=== PATIENT | male | born 1955 | race African-American/Black ===

== ENCOUNTER 2018-03-30 00:23 | Inpatient (IN) | payer MEDICAID ==
[~2018-03-30] VITALS: Ht 177.8 cm; Wt 75.3 kg
[2018-03-30] VITALS (8 sets, daily range): BP systolic 100–136; BP diastolic 66–96
[2018-03-30] MEDS ORDERED: PANTOPRAZOLE SODIUM 40 MG/VIAL IV STA (01:32)
[2018-03-30] MEDS ORDERED: SODIUM CHLORIDE 0.9% 1,000 ML IV ONE (01:32)
[2018-03-30] MEDS ORDERED: ONDANSETRON HCL 4MG/2ML INJ IV STA (01:32)
[2018-03-30 02:41] LABS: BASOPHILS % 0.3 % (0.0-2.0); EOSINOPHILS % 0.4 % (0.0-5.0); HEMATOCRIT. 29.9 % (42.0-52.0); HEMOGLOBIN. 9.3 g/dL (14.0-18.0); LYMPHOCYTES % 14.9 % (20.0-50.0); MEAN CORPUSCULAR HEMOGLOBIN 22.9 pg (28.0-32.0); MEAN CORPUSCULAR VOLUME 74.1 fL (80.0-94.0); MONOCYTES % 7.6 % (2.0-8.0); NEUTROPHILS % 76.8 % (40.0-76.0); PLATELET 281 x1000/uL (130-400); RED BLOOD CELL COUNT 4.04 mill/uL (4.7-6.1); RED CELL DISTRIBUTION WIDTH 20.1 % (11.6-14.6)
[2018-03-30 02:47] LABS: CHLORIDE 107 mEq/L (98-107)
[2018-03-30 02:53] LABS: INR 1.1; PARTIAL THROMBOPLASTIN TIME 30.5 sec (23.4-31.0); PROTHROMBIN TIME 10.8 sec (9.1-11.1)
[2018-03-30] MEDS ORDERED: ACET-2708 MT (11:40)
[2018-03-30] MEDS ORDERED: FAMO20TA8 MT (11:40)
[2018-03-30] MEDS ORDERED: ALBU2.5V13 IH (11:40)
[2018-03-30] MEDS ORDERED: CLON0.1T PO (11:40)
[2018-03-30] MEDS ORDERED: ACET-2178 MT (11:40)
[2018-03-30] MEDS ORDERED: GABA-531 MT (11:40)
[2018-03-30] MEDS ORDERED: DOCU250C69 MT (11:40)
[2018-03-30] MEDS ORDERED: MOM MT (11:40)
[2018-03-30] MEDS ORDERED: RISP1TAB26 MT (11:40)
[2018-03-30] MEDS ORDERED: KEPP500 MT (11:40)
[2018-03-30] MEDS ORDERED: MIDO5TAB MT (11:40)
[2018-03-30] MEDS ORDERED: DIPHENHYDRAMINE 50MG/ML VIAL IV PRN (13:45)
[2018-03-30] MEDS ORDERED: DOCUSATE SODIUM 100MG CAPSULE PO PRN (13:45)
[2018-03-30] MEDS ORDERED: DEXTROSE 50% WATER 50ML SYRINGE IV PRN (13:45)
[2018-03-30] MEDS ORDERED: ACETAMINOPHEN 325MG TABLET PO PRN (13:45)
[2018-03-30] MEDS ORDERED: GUAIFENESIN 200MG/10ML SUGAR FREE UDC PO PRN (13:45)
[2018-03-30] MEDS ORDERED: HYDRALAZINE 20MG/ML VIAL IV PRN (13:45)
[2018-03-30] MEDS ORDERED: MAGNESIUM/ALUMINUM HYDROXIDE/SIMETHICONE 30ML UDC PO PRN (13:45)
[2018-03-30] MEDS ORDERED: ONDANSETRON HCL 4MG/2ML INJ IV PRN (13:45)
[2018-03-30] MEDS ORDERED: IPRATROPIUM/ALBUTEROL 0.5-3(2.5)MG/3ML NEB INH PRN (13:45)
[2018-03-30] MEDS ORDERED: CLONIDINE 0.1MG TABLET PO PRN (13:45)
[2018-03-30] MEDS: PANTOPRAZOLE SODIUM 40 MG/VIAL IV SCH ×2 (15:13→21:13)
[2018-03-30] MEDS: SODIUM CHLORIDE 0.45% 1,000 ML IV SCH (15:16)
[2018-03-30] MEDS: HYDROMORPHONE HCL/PF 2MG/ML CPJ IV PRN ×2 (15:16→21:42)
[2018-03-30 17:57] LABS: TOTAL IRON BINDING CAPACITY 369 ug/dL (250-450)
[2018-03-30 17:58] LABS: CREATINE KINASE 79 IU/L (39-308)
[2018-03-30 17:59] LABS: CREATINE KINASE MB FRACTION < 1.0 ng/mL (0.5-3.6)
[2018-03-30] MEDS: INSULIN LISPRO 100 UNITS/ML SUBCUT SCH ×2 (18:00→21:00)
[2018-03-30] MEDS: BLOOD SUGAR DIAGNOSTIC STRIP TEST SCH ×2 (18:18→21:12)
[2018-03-30] MEDS: METOCLOPRAMIDE HCL 10MG/2ML VIAL IV SCH ×2 (18:19→23:49)
[2018-03-30] MEDS ORDERED: PANTOPRAZOLE SODIUM 40 MG/VIAL IV SCH (21:00)
[2018-03-30] MEDS: SODIUM CHLORIDE 0.9% INJ 3ML FLUSH IVF SCH (21:13)
[2018-03-30 23:36] LABS: HEMATOCRIT 24.3 % (42.0-52.0); HEMOGLOBIN 7.6 g/dL (14.0-18.0)
[2018-03-30 23:40] LABS: CREATINE KINASE 102 IU/L (39-308)
[2018-03-30 23:41] LABS: CREATINE KINASE MB FRACTION 1.1 ng/mL (0.5-3.6)
[2018-03-30] MEDS: LORAZEPAM 2MG/ML CPJ IV PRN (23:53)
[2018-03-30 23:54] LABS: FOLIC ACID (FOLATE) SERUM 17.6 ng/mL (>5.38)
[2018-03-31] VITALS (15 sets, daily range): BP systolic 99–135; BP diastolic 44–78
[2018-03-31] MEDS: SODIUM CHLORIDE 0.9% INJ 3ML FLUSH IVF SCH ×3 (06:00→21:23)
[2018-03-31] MEDS: METOCLOPRAMIDE HCL 10MG/2ML VIAL IV SCH ×4 (06:06→23:31)
[2018-03-31 06:59] LABS: BASOPHILS % 0.4 % (0.0-2.0); EOSINOPHILS % 1.5 % (0.0-5.0); HEMATOCRIT. 25.1 % (42.0-52.0); HEMOGLOBIN. 7.8 g/dL (14.0-18.0); MEAN CORPUSCULAR HEMOGLOBIN 23.1 pg (28.0-32.0); MEAN CORPUSCULAR VOLUME 74.3 fL (80.0-94.0); MEAN PLATELET VOLUME 8.9 fl (7.4-10.4); MONOCYTES % 12.4 % (2.0-8.0); NEUTROPHILS % 65.7 % (40.0-76.0); PLATELET 227 x1000/uL (130-400); RED BLOOD CELL COUNT 3.38 mill/uL (4.7-6.1); RED CELL DISTRIBUTION WIDTH 20.1 % (11.6-14.6)
[2018-03-31 07:11] LABS: CHLORIDE 111 mEq/L (98-107)
[2018-03-31 07:31] LABS: LDL CHOLESTEROL 61 mg/dL (5-100)
[2018-03-31 07:34] LABS: HDL CHOLESTEROL 37 mg/dL (40-59)
[2018-03-31] MEDS: BLOOD SUGAR DIAGNOSTIC STRIP TEST SCH ×4 (07:58→21:23)
[2018-03-31] MEDS: INSULIN LISPRO 100 UNITS/ML SUBCUT SCH ×4 (07:59→21:00)
[2018-03-31] MEDS: PANTOPRAZOLE SODIUM 40 MG/VIAL IV SCH ×2 (09:00→20:28)
[2018-03-31] MEDS: SODIUM CHLORIDE 0.45% 1,000 ML IV SCH ×2 (12:00→23:34)
[2018-03-31] MEDS: HYDROMORPHONE HCL/PF 2MG/ML CPJ IV PRN ×3 (14:55→20:29)
[2018-03-31 18:04] LABS: HEMATOCRIT 25.2 % (42.0-52.0); HEMOGLOBIN 7.6 g/dL (14.0-18.0)
[2018-03-31] MEDS: LORAZEPAM 2MG/ML CPJ IV PRN (23:31)
[2018-03-31] MEDS: HYDROCODONE/ACETAMINOPHEN 10/325MG TABLET PO PRN (23:32)
[2018-04-01] VITALS (23 sets, daily range): BP systolic 90–136; BP diastolic 56–84
[2018-04-01] MEDS: METOCLOPRAMIDE HCL 10MG/2ML VIAL IV SCH ×3 (05:38→18:41)
[2018-04-01] MEDS: SODIUM CHLORIDE 0.9% INJ 3ML FLUSH IVF SCH ×3 (05:38→22:46)
[2018-04-01 06:29] LABS: INR 1.1; PARTIAL THROMBOPLASTIN TIME 25.9 sec (23.4-31.0); PROTHROMBIN TIME 11.2 sec (9.1-11.1)
[2018-04-01 06:37] LABS: BASOPHILS % 0.3 % (0.0-2.0); LYMPHOCYTES % 12.9 % (20.0-50.0); MEAN CORPUSCULAR VOLUME 75.1 fL (80.0-94.0); MEAN PLATELET VOLUME 8.5 fl (7.4-10.4); MONOCYTES % 11.5 % (2.0-8.0); NEUTROPHILS % 73.3 % (40.0-76.0); PLATELET 204 x1000/uL (130-400); RED BLOOD CELL COUNT 2.96 mill/uL (4.7-6.1); RED CELL DISTRIBUTION WIDTH 20.9 % (11.6-14.6)
[2018-04-01 07:43] LABS: CHLORIDE 107 mEq/L (98-107)
[2018-04-01] MEDS: BLOOD SUGAR DIAGNOSTIC STRIP TEST SCH ×4 (07:53→21:00)
[2018-04-01] MEDS: INSULIN LISPRO 100 UNITS/ML SUBCUT SCH ×4 (07:53→21:00)
[2018-04-01 08:23] LABS: HEMATOCRIT. 22.2 % (42.0-52.0); HEMOGLOBIN. 6.8 g/dL (14.0-18.0)
[2018-04-01] MEDS: DEXT 5%/0.45% NACL 1000ML 1,000 ML IV SCH (08:52)
[2018-04-01] MEDS: PANTOPRAZOLE SODIUM 40 MG/VIAL IV SCH ×2 (08:52→22:45)
[2018-04-01 14:31] LABS: HEMATOCRIT 27.5 % (42.0-52.0); HEMOGLOBIN 8.8 g/dL (14.0-18.0)
[2018-04-01] MEDS ORDERED: FENTANYL CITRATE/PF 50MCG/ML 2ML VIAL ONE ×2 (17:16→17:18)
[2018-04-01] MEDS ORDERED: MIDAZOLAM HCL 5 MG/5 ML VIAL IV PRN (17:16)
[2018-04-01] MEDS ORDERED: MIDAZOLAM HCL 5 MG/5 ML VIAL ONE (17:16)
[2018-04-01] MEDS: HYDROMORPHONE HCL/PF 2MG/ML CPJ IV PRN (18:42)
[2018-04-02] VITALS (12 sets, daily range): BP systolic 116–141; BP diastolic 54–91
[2018-04-02] MEDS: METOCLOPRAMIDE HCL 10MG/2ML VIAL IV SCH ×4 (01:35→23:49)
[2018-04-02] MEDS: DEXT 5%/0.45% NACL 1000ML 1,000 ML IV SCH ×2 (01:35→17:33)
[2018-04-02] MEDS: INSULIN LISPRO 100 UNITS/ML SUBCUT SCH ×4 (07:49→21:00)
[2018-04-02] MEDS: BLOOD SUGAR DIAGNOSTIC STRIP TEST SCH ×4 (07:49→21:51)
[2018-04-02] MEDS: PANTOPRAZOLE SODIUM 40 MG/VIAL IV SCH ×2 (08:10→21:51)
[2018-04-02] MEDS: HYDROMORPHONE HCL/PF 2MG/ML CPJ IV PRN ×2 (08:11→16:40)
[2018-04-02 08:28] LABS: BASOPHILS % 0.2 % (0.0-2.0); EOSINOPHILS % 1.7 % (0.0-5.0); HEMATOCRIT. 31.3 % (42.0-52.0); LYMPHOCYTES % 14.5 % (20.0-50.0); MEAN CORPUSCULAR HEMOGLOBIN 24.9 pg (28.0-32.0); MEAN CORPUSCULAR VOLUME 77.7 fL (80.0-94.0); MEAN PLATELET VOLUME 8.8 fl (7.4-10.4); MONOCYTES % 14.7 % (2.0-8.0); NEUTROPHILS % 68.9 % (40.0-76.0); PLATELET 194 x1000/uL (130-400); RED BLOOD CELL COUNT 4.03 mill/uL (4.7-6.1)
[2018-04-02 08:55] LABS: CHLORIDE 107 mEq/L (98-107)
[2018-04-02] MEDS ORDERED: POTASSIUM CHLORIDE 20MEQ TABLET SR PO SCH (12:15)
[2018-04-02] MEDS: SUCRALFATE 1 G/10 ML UDC PO SCH ×3 (12:46→21:51)
[2018-04-02] MEDS: SODIUM CHLORIDE 0.9% INJ 3ML FLUSH IVF SCH ×2 (13:30→21:52)
[2018-04-02] MEDS: HYDROCODONE/ACETAMINOPHEN 10/325MG TABLET PO PRN (23:54)
[2018-04-03] VITALS (7 sets, daily range): BP systolic 106–135; BP diastolic 59–80
[2018-04-03] MEDS: METOCLOPRAMIDE HCL 10MG/2ML VIAL IV SCH ×2 (05:07→12:07)
[2018-04-03] MEDS: SODIUM CHLORIDE 0.9% INJ 3ML FLUSH IVF SCH ×2 (05:07→14:59)
[2018-04-03] MEDS: BLOOD SUGAR DIAGNOSTIC STRIP TEST SCH ×2 (07:30→12:30)
[2018-04-03] MEDS: INSULIN LISPRO 100 UNITS/ML SUBCUT SCH ×2 (08:00→13:00)
[2018-04-03] MEDS: SUCRALFATE 1 G/10 ML UDC PO SCH ×2 (08:44→12:07)
[2018-04-03] MEDS: PANTOPRAZOLE SODIUM 40 MG/VIAL IV SCH (09:40)
[2018-04-03] MEDS: DEXT 5%/0.45% NACL 1000ML 1,000 ML IV SCH (11:56)
== END 2018-04-03 18:17 | DRG 241 ==
LOC: ER 00:23 → 5EST 05:28 → EDBEDREQ 05:36 → EDBEDREQTM 05:36 → ENRESERV 06:58
PROVIDERS: ADMIT Internal Medicine; ATTEND Internal Medicine
PROC: 0DJ08ZZ Inspection of Upper Intestinal Tract, Via Natural or Artificial Opening Endoscopic (ICD-10-PCS; 2018-03-30)
PROC: B54BZZA Ultrasonography of Right Lower Extremity Veins, Guidance (ICD-10-PCS; 2018-03-31)
PROC: 06HY33Z Insertion of Infusion Device into Lower Vein, Percutaneous Approach (ICD-10-PCS; 2018-03-31)
PROC: 30233N1 Transfusion of Nonautologous Red Blood Cells into Peripheral Vein, Percutaneous Approach (ICD-10-PCS; principal; 2018-04-01)
DX: K29.71 Gastritis, unspecified, with bleeding (principal); J96.00 Acute respiratory failure, unspecified whether with hypoxia or hypercapnia; Z93.0 Tracheostomy status; E11.51 Type 2 diabetes mellitus with diabetic peripheral angiopathy without gangrene; I31.3 Pericardial effusion (noninflammatory); K56.7 Ileus, unspecified; F20.9 Schizophrenia, unspecified; K83.8 Other specified diseases of biliary tract; D50.9 Iron deficiency anemia, unspecified; J44.9 Chronic obstructive pulmonary disease, unspecified; I10 Essential (primary) hypertension; K44.9 Diaphragmatic hernia without obstruction or gangrene; N28.1 Cyst of kidney, acquired; G40.909 Epilepsy, unspecified, not intractable, without status epilepticus; K21.0 Gastro-esophageal reflux disease with esophagitis; K22.8 Other specified diseases of esophagus; Z79.4 Long term (current) use of insulin; Z79.899 Other long term (current) drug therapy; Z87.11 Personal history of peptic ulcer disease; Z86.718 Personal history of other venous thrombosis and embolism; K20.8 Other esophagitis
CPT/HCPCS: 36415; 36569; 71045; 74018; 74176; 76700; 76937; 80048; 80061; 82550; 82553; 82607; 82728; 82746; 82941; 82962; 83540; 83550; 83605; 83735; 84439; 84443; 84484; 85014; 85018; 86850; 86900; 86920; 93005; 93306; 96374; 96375; 99291; A6261; C1725; C1769; C1887; C9113; J1170; J1200; J2060; J2250; J2405; J2765; J3010; J7030; J7040; L8514; P9016

== ENCOUNTER 2019-08-04 17:13 | Inpatient (IN) | payer MEDICAID ==
[~2019-08-04] VITALS: Ht 165.1 cm; Wt 63.0 kg
[~2019-08-04 17:13] MED LIST: ACET-2708 MT; ALBU2.5V13 IH; CLON0.1T PO; DOCU250C69 MT; FAMO20TA8 MT; GABA-531 MT; KEPP500 MT; MIDO5TAB4 MT; MOM MT; RISP1TAB26 MT; TOPUD MT
[2019-08-04] MEDS ORDERED: ACETAMINOPHEN 650MG SUPP PR STA (18:18)
[2019-08-04] MEDS ORDERED: SODIUM CHLORIDE 0.9% 1,000 ML IV ONE (18:18)
[2019-08-04] MEDS ORDERED: ONDANSETRON HCL 4MG/2ML INJ IV ONE (18:30)
[2019-08-04] MEDS ORDERED: VANCOMYCIN 1 G PREMIX 200 ML IV ONE (18:30)
[2019-08-04] MEDS ORDERED: PIPERACILLIN/TAZ 3.375G PREMIX 50 ML IV ONE (18:30)
[2019-08-04 18:49] LABS: BASOPHILS % 0.2 % (0.0-2.0); EOSINOPHILS % 0.1 % (0.0-5.0); HEMATOCRIT. 39.4 % (42.0-52.0); HEMOGLOBIN. 13.3 g/dL (14.0-18.0); LYMPHOCYTES % 8.3 % (20.0-50.0); MEAN CORPUSCULAR HEMOGLOBIN 29.6 pg (28.0-32.0); MEAN CORPUSCULAR VOLUME 87.8 fL (80.0-94.0); MEAN PLATELET VOLUME 8.8 fl (7.4-10.4); MONOCYTES % 7.6 % (2.0-8.0); NEUTROPHILS % 83.8 % (40.0-76.0); PLATELET 211 x1000/uL (130-400); RED BLOOD CELL COUNT 4.49 mill/uL (4.7-6.1); RED CELL DISTRIBUTION WIDTH 19.2 % (11.6-14.6)
[2019-08-04 18:56] LABS: CHLORIDE 107 mEq/L (98-107)
[2019-08-04 19:00] LABS: PARTIAL THROMBOPLASTIN TIME 28.2 sec (23.4-31.0); PROTHROMBIN TIME 11.1 sec (9.6-11.0)
[2019-08-04] MEDS ORDERED: PANTOPRAZOLE SODIUM 40 MG/VIAL IV ONE (21:15)
[2019-08-05] VITALS (7 sets, daily range): BP systolic 84–109; BP diastolic 41–59
[2019-08-05 01:29] LABS: CLARITY URINE CLOUDY (CLEAR); COLOR URINE YELLOW (YELLOW); KETONES URINE 1+ (NEGATIVE); LEUKOCYTE ESTERASE URINE TRACE (NEGATIVE); NITRITE URINE POSITIVE (NEGATIVE); OCCULT BLOOD URINE TRACE (NEGATIVE); PH URINE 5.5 (4.5-8.0); PROTEIN URINE TRACE (NEGATIVE)
[2019-08-05] MEDS ORDERED: TRAZ-251 PO (02:20)
[2019-08-05] MEDS ORDERED: IPRATROPIUM/ALBUTEROL 0.5-3(2.5)MG/3ML NEB HHN PRN (02:30)
[2019-08-05] MEDS: MIDODRINE HCL 5MG TABLET PO SCH ×3 (05:40→21:43)
[2019-08-05] MEDS: CEFTRIAXONE 1 G PREMIX 50 ML IV SCH (08:00)
[2019-08-05] MEDS: SODIUM CHLORIDE 0.45% 1,000 ML IV SCH (08:30)
[2019-08-05] MEDS ORDERED: ENOXAPARIN 40MG/0.4ML SYR SUBCUT SCH (09:00)
[2019-08-05] MEDS: AZITHROMYCIN 500 MG in DEXT 5% WATER 250 ML IV SCH (09:00)
[2019-08-05] MEDS: PANTOPRAZOLE SODIUM 40 MG/VIAL IV SCH ×3 (09:00→21:42)
[2019-08-05] MEDS: LEVETIRACETAM 500MG TABLET PO SCH ×2 (10:07→18:16)
[2019-08-05] MEDS: RISPERIDONE 1MG TABLET PO SCH ×2 (10:08→18:16)
[2019-08-05 13:04] LABS: HEMATOCRIT 29.5 % (42.0-52.0); HEMOGLOBIN 9.9 g/dL (14.0-18.0)
[2019-08-05] MEDS: SUCRALFATE 1 G/10 ML UDC PO SCH ×2 (13:30→18:16)
[2019-08-05 17:51] LABS: HEMATOCRIT 28.5 % (42.0-52.0); HEMOGLOBIN 9.6 g/dL (14.0-18.0)
[2019-08-05] MEDS: TRAZODONE HCL 50MG TABLET PO SCH (21:44)
[2019-08-06 00:34] LABS: HEMATOCRIT 26.1 % (42.0-52.0); HEMOGLOBIN 8.8 g/dL (14.0-18.0)
[2019-08-06 01:11] VITALS: BP 86/43
[2019-08-06 04:00] VITALS: BP 90/46
[2019-08-06] MEDS: SODIUM CHLORIDE 0.45% 1,000 ML IV SCH (04:15)
[2019-08-06] MEDS: SUCRALFATE 1 G/10 ML UDC PO SCH ×4 (04:21→17:12)
[2019-08-06] MEDS: MIDODRINE HCL 5MG TABLET PO SCH ×3 (06:20→21:37)
[2019-08-06 07:21] LABS: BASOPHILS % 0.5 % (0.0-2.0); EOSINOPHILS % 1.8 % (0.0-5.0); HEMATOCRIT. 25.8 % (42.0-52.0); HEMOGLOBIN. 8.9 g/dL (14.0-18.0); LYMPHOCYTES % 12.5 % (20.0-50.0); MEAN CORPUSCULAR HEMOGLOBIN 30.1 pg (28.0-32.0); MEAN CORPUSCULAR VOLUME 87.3 fL (80.0-94.0); MEAN PLATELET VOLUME 8.5 fl (7.4-10.4); MONOCYTES % 12.1 % (2.0-8.0); NEUTROPHILS % 73.1 % (40.0-76.0); PLATELET 135 x1000/uL (130-400); RED BLOOD CELL COUNT 2.96 mill/uL (4.7-6.1); RED CELL DISTRIBUTION WIDTH 18.9 % (11.6-14.6)
[2019-08-06 07:50] LABS: CHLORIDE 109 mEq/L (98-107)
[2019-08-06 08:00] VITALS: BP 93/51
[2019-08-06] MEDS: CEFTRIAXONE 1 G PREMIX 50 ML IV SCH (09:22)
[2019-08-06] MEDS: LEVETIRACETAM 500MG TABLET PO SCH ×2 (09:22→17:11)
[2019-08-06] MEDS: PANTOPRAZOLE SODIUM 40 MG/VIAL IV SCH ×2 (09:22→21:37)
[2019-08-06] MEDS: RISPERIDONE 1MG TABLET PO SCH ×2 (09:22→17:11)
[2019-08-06] MEDS: ACETAMINOPHEN 325MG TABLET PO PRN (11:39)
[2019-08-06] MEDS: AZITHROMYCIN 500 MG in DEXT 5% WATER 250 ML IV SCH (11:42)
[2019-08-06 12:00] VITALS: BP 96/61
[2019-08-06 16:00] VITALS: BP 96/48
[2019-08-06 20:00] VITALS: BP 97/52
[2019-08-06] MEDS: TRAZODONE HCL 50MG TABLET PO SCH (21:37)
[2019-08-07] VITALS: BP 88/53
[2019-08-07] MEDS: SODIUM CHLORIDE 0.45% 1,000 ML IV SCH ×2 (00:30→21:02)
[2019-08-07] MEDS: SUCRALFATE 1 G/10 ML UDC PO SCH ×5 (00:58→23:07)
[2019-08-07] MEDS: ONDANSETRON HCL 4MG/2ML INJ IV PRN ×4 (01:20→23:57)
[2019-08-07 04:00] VITALS: BP 98/58
[2019-08-07] MEDS: MIDODRINE HCL 5MG TABLET PO SCH ×3 (05:41→21:03)
[2019-08-07 07:31] LABS: BASOPHILS % 0.6 % (0.0-2.0); EOSINOPHILS % 1.7 % (0.0-5.0); HEMATOCRIT. 27.5 % (42.0-52.0); HEMOGLOBIN. 9.4 g/dL (14.0-18.0); LYMPHOCYTES % 13.1 % (20.0-50.0); MEAN CORPUSCULAR HEMOGLOBIN 29.6 pg (28.0-32.0); MEAN PLATELET VOLUME 9.1 fl (7.4-10.4); NEUTROPHILS % 73.6 % (40.0-76.0); PLATELET 152 x1000/uL (130-400); RED BLOOD CELL COUNT 3.16 mill/uL (4.7-6.1); RED CELL DISTRIBUTION WIDTH 18.6 % (11.6-14.6)
[2019-08-07 07:36] LABS: CHLORIDE 111 mEq/L (98-107)
[2019-08-07 08:00] VITALS: BP 99/58
[2019-08-07] MEDS: LEVETIRACETAM 500MG TABLET PO SCH ×2 (08:20→17:31)
[2019-08-07] MEDS: RISPERIDONE 1MG TABLET PO SCH ×2 (08:20→17:31)
[2019-08-07] MEDS: PANTOPRAZOLE SODIUM 40 MG/VIAL IV SCH ×2 (08:20→21:03)
[2019-08-07] MEDS: CEFTRIAXONE 1 G PREMIX 50 ML IV SCH (08:20)
[2019-08-07] MEDS: ACETAMINOPHEN 325MG TABLET PO PRN (08:21)
[2019-08-07 12:00] VITALS: BP 97/62
[2019-08-07 16:00] VITALS: BP 99/58
[2019-08-07 20:00] VITALS: BP 93/55
[2019-08-07] MEDS: TRAZODONE HCL 50MG TABLET PO SCH (21:03)
[2019-08-08] VITALS: BP 79/48
[2019-08-08 04:00] VITALS: BP 93/61
[2019-08-08] MEDS: SUCRALFATE 1 G/10 ML UDC PO SCH ×3 (06:00→17:22)
[2019-08-08] MEDS: MIDODRINE HCL 5MG TABLET PO SCH ×3 (06:00→17:22)
[2019-08-08 06:52] LABS: BASOPHILS % 0.6 % (0.0-2.0); EOSINOPHILS % 4.7 % (0.0-5.0); HEMATOCRIT. 25.5 % (42.0-52.0); HEMOGLOBIN. 8.7 g/dL (14.0-18.0); LYMPHOCYTES % 20.5 % (20.0-50.0); MEAN CORPUSCULAR HEMOGLOBIN 29.3 pg (28.0-32.0); MEAN CORPUSCULAR VOLUME 86.2 fL (80.0-94.0); MEAN PLATELET VOLUME 8.5 fl (7.4-10.4); MONOCYTES % 13.5 % (2.0-8.0); NEUTROPHILS % 60.7 % (40.0-76.0); PLATELET 153 x1000/uL (130-400); RED BLOOD CELL COUNT 2.96 mill/uL (4.7-6.1); RED CELL DISTRIBUTION WIDTH 18.4 % (11.6-14.6)
[2019-08-08 07:00] LABS: CHLORIDE 109 mEq/L (98-107)
[2019-08-08] MEDS: CEFTRIAXONE 1 G PREMIX 50 ML IV SCH (08:35)
[2019-08-08] MEDS: PANTOPRAZOLE SODIUM 40 MG/VIAL IV SCH ×2 (08:35→22:08)
[2019-08-08] MEDS: LEVETIRACETAM 500MG TABLET PO SCH ×2 (08:35→17:22)
[2019-08-08] MEDS: RISPERIDONE 1MG TABLET PO SCH ×3 (08:35→17:00)
[2019-08-08 09:30] VITALS: BP 74/42
[2019-08-08] MEDS ORDERED: SODIUM CHLORIDE 0.9% 1,000 ML IV SCH ×2 (09:38→09:45)
[2019-08-08 12:00] VITALS: BP 90/48
[2019-08-08 16:00] VITALS: BP 96/46
[2019-08-08] MEDS: SODIUM CHLORIDE 0.45% 1,000 ML IV SCH (16:28)
[2019-08-08 20:00] VITALS: BP 104/58
[2019-08-08] MEDS ORDERED: IOHEXOL-300 100 ML BOTTLE ONE (20:56)
[2019-08-08] MEDS: TRAZODONE HCL 50MG TABLET PO SCH (22:08)
[2019-08-09] VITALS: BP 102/50
[2019-08-09] MEDS: SUCRALFATE 1 G/10 ML UDC PO SCH ×3 (00:38→14:27)
[2019-08-09] MEDS: ACETAMINOPHEN 325MG TABLET PO PRN (00:38)
[2019-08-09] MEDS: SODIUM CHLORIDE 0.45% 1,000 ML IV SCH ×2 (02:27→12:28)
[2019-08-09 04:00] VITALS: BP 100/52
[2019-08-09 08:00] VITALS: BP 135/79
[2019-08-09 08:00] LABS: CHLORIDE 110 mEq/L (98-107)
[2019-08-09] MEDS: PANTOPRAZOLE SODIUM 40 MG/VIAL IV SCH (09:23)
[2019-08-09] MEDS: CEFTRIAXONE 1 G PREMIX 50 ML IV SCH (09:24)
[2019-08-09] MEDS: MIDODRINE HCL 5MG TABLET PO SCH ×2 (09:38→14:27)
[2019-08-09] MEDS: RISPERIDONE 1MG TABLET PO SCH (09:38)
[2019-08-09] MEDS: LEVETIRACETAM 500MG TABLET PO SCH (09:53)
[2019-08-09 10:36] LABS: BASOPHILS % 1.1 % (0.0-2.0); EOSINOPHILS % 4.5 % (0.0-5.0); HEMATOCRIT. 26.1 % (42.0-52.0); LYMPHOCYTES % 23.8 % (20.0-50.0); MEAN CORPUSCULAR HEMOGLOBIN 29.9 pg (28.0-32.0); MEAN CORPUSCULAR VOLUME 87.1 fL (80.0-94.0); MEAN PLATELET VOLUME 8.5 fl (7.4-10.4); MONOCYTES % 11.9 % (2.0-8.0); NEUTROPHILS % 58.7 % (40.0-76.0); PLATELET 163 x1000/uL (130-400); RED CELL DISTRIBUTION WIDTH 18.4 % (11.6-14.6)
[2019-08-09 12:00] VITALS: BP 110/60
[2019-08-09 15:22] VITALS: BP 110/60
== END 2019-08-09 17:00 | DRG 720 ==
LOC: ER 17:13 → EDBEDREQ 20:43 → EDBEDREQTM 20:43 → MICUSO 22:59 → 7WST 08-05 01:30 → 8WST 08-06 01:16
PROVIDERS: ADMIT Internal Medicine; ATTEND Emergency Medicine
DX: A41.9 Sepsis, unspecified organism (principal); J96.00 Acute respiratory failure, unspecified whether with hypoxia or hypercapnia; R65.21 Severe sepsis with septic shock; E87.2 Acidosis; E11.8 Type 2 diabetes mellitus with unspecified complications; I95.9 Hypotension, unspecified; K92.2 Gastrointestinal hemorrhage, unspecified; E11.9 Type 2 diabetes mellitus without complications; D64.9 Anemia, unspecified; N39.0 Urinary tract infection, site not specified; F20.9 Schizophrenia, unspecified; K21.9 Gastro-esophageal reflux disease without esophagitis; K44.9 Diaphragmatic hernia without obstruction or gangrene; Z20.828 Contact with and (suspected) exposure to other viral communicable diseases; I10 Essential (primary) hypertension; J44.9 Chronic obstructive pulmonary disease, unspecified; G40.909 Epilepsy, unspecified, not intractable, without status epilepticus; K21.0 Gastro-esophageal reflux disease with esophagitis; Z86.718 Personal history of other venous thrombosis and embolism; Z87.11 Personal history of peptic ulcer disease; Z95.828 Presence of other vascular implants and grafts; Z79.1 Long term (current) use of non-steroidal anti-inflammatories (NSAID); Z79.899 Other long term (current) drug therapy
CPT/HCPCS: 36415; 71045; 74177; 80048; 80053; 81003; 82962; 83605; 83880; 84145; 84484; 85014; 85018; 85025; 93005; 93306; 97162; 97530; 99291; C9113; J0456; J0696; J2405; J2543; J3370; J7030; J7060; Q9967; U0003-CS

== ENCOUNTER 2019-12-24 18:02 | Inpatient (IN) | payer MEDICAID ==
[~2019-12-24] VITALS: Ht 172.7 cm; Wt 62.6 kg
[~2019-12-24 18:02] MED LIST changes: +TRAZ-251 PO
[2019-12-24] MEDS ORDERED: PIPERACILLIN/TAZ 3.375G PREMIX 50 ML IV ONE (18:30)
[2019-12-24] MEDS ORDERED: VANCOMYCIN 1 G PREMIX 200 ML IV ONE (18:30)
[2019-12-24] MEDS ORDERED: SODIUM CHLORIDE 0.9% 1000ML BAG (SEPSIS BOLUS) IV ONE (18:30)
[2019-12-24 18:59] LABS: HEMATOCRIT. 28.1 % (42.0-52.0); HEMOGLOBIN. 9.3 g/dL (14.0-18.0); MEAN CORPUSCULAR HEMOGLOBIN 26.6 pg (28.0-32.0); MEAN CORPUSCULAR VOLUME 80.7 fL (80.0-94.0); MEAN PLATELET VOLUME 9.3 fl (7.4-10.4); PLATELET 179 x1000/uL (130-400); RED BLOOD CELL COUNT 3.49 mill/uL (4.7-6.1); RED CELL DISTRIBUTION WIDTH 21.3 % (11.6-14.6)
[2019-12-24 19:06] LABS: CHLORIDE 114 mEq/L (98-107)
[2019-12-24 19:15] LABS: INR 1.3; PROTHROMBIN TIME 13.4 sec (9.6-11.0)
[2019-12-24 19:34] LABS: CLARITY URINE CLOUDY (CLEAR); COLOR URINE DARK YELLOW (YELLOW); KETONES URINE NEGATIVE (NEGATIVE); LEUKOCYTE ESTERASE URINE 1+ (NEGATIVE); NITRITE URINE POSITIVE (NEGATIVE); OCCULT BLOOD URINE 1+ (NEGATIVE); PROTEIN URINE 2+ (NEGATIVE); SPECIFIC GRAVITY URINE 1.031 (1.005-1.030)
[2019-12-24] MEDS ORDERED: ACETAMINOPHEN 325MG TABLET PO ONE (19:45)
[2019-12-24 20:17] LABS: PLATELET ESTIMATE NORMAL
[2019-12-24] MEDS ORDERED: NOREPINEPHRINE 8MG/250ML PMX 250 ML IV ONE (23:45)
[2019-12-25] VITALS (71 sets, daily range): BP systolic 81–142; BP diastolic 46–103
[2019-12-25] MEDS ORDERED: DOCU50LI25 MT (02:11)
[2019-12-25] MEDS ORDERED: KEPPSOL MT (02:17)
[2019-12-25] MEDS ORDERED: RISP4 MT (02:17)
[2019-12-25] MEDS ORDERED: MAGN400C MT (02:17)
[2019-12-25] MEDS ORDERED: ONDA4TAB5 MT (02:17)
[2019-12-25] MEDS ORDERED: PROT40 MT (02:17)
[2019-12-25] MEDS ORDERED: DIPH25CA83 MT (02:17)
[2019-12-25] MEDS ORDERED: CALC600T12 MT (02:17)
[2019-12-25] MEDS ORDERED: DEXTROSE 50% WATER 50ML SYRINGE IV PRN (03:00)
[2019-12-25] MEDS ORDERED: POTASSIUM CHLORIDE 20MEQ/PACKET PO SCH (03:00)
[2019-12-25] MEDS ORDERED: NOREPINEPHRINE 8MG/250ML PMX 250 ML IV PRN (03:00)
[2019-12-25] MEDS ORDERED: NOREPINEPHRINE 8 MG in DEXTROSE 5% WATER 250 ML IV PRN (03:15)
[2019-12-25] MEDS: PIPERACILLIN/TAZOBACTAM 3.375 G in DEXT 5% WATER 100 ML IV SCH ×4 (05:40→23:58)
[2019-12-25] MEDS: VANCOMYCIN 1 G PREMIX 200 ML IV SCH ×2 (05:41→19:45)
[2019-12-25] MEDS ORDERED: PIPERACILLIN/TAZOBACTAM 3.375 G/VIAL IV SCH (06:00)
[2019-12-25] MEDS ORDERED: BLOOD SUGAR DIAGNOSTIC STRIP TEST SCH (06:30)
[2019-12-25] MEDS ORDERED: INSULIN LISPRO 100 UNITS/ML SUBCUT SCH (07:00)
[2019-12-25] MEDS: ENOXAPARIN 40MG/0.4ML SYR SUBCUT SCH (09:00)
[2019-12-25] MEDS ORDERED: IPRATROPIUM/ALBUTEROL 0.5-3(2.5)MG/3ML NEB HHN PRN (10:30)
[2019-12-25] MEDS: DOCUSATE SODIUM 250MG CAPSULE PO SCH (10:30)
[2019-12-25] MEDS: SODIUM CHLORIDE 0.45% 1,000 ML IV SCH ×2 (11:10→23:57)
[2019-12-25] MEDS: LEVETIRACETAM 500MG TABLET PO SCH ×2 (11:26→21:10)
[2019-12-25] MEDS: MIDODRINE HCL 5MG TABLET PO SCH ×4 (11:26→17:02)
[2019-12-25] MEDS: OMEPRAZOLE 20MG CAPSULE EXTENDED RELEASE PO SCH (11:27)
[2019-12-25] MEDS: FERROUS SULFATE 325MG TABLET PO SCH ×3 (11:29→17:01)
[2019-12-25 12:26] LABS: HEMATOCRIT. 24.8 % (42.0-52.0); HEMOGLOBIN. 8.1 g/dL (14.0-18.0); MEAN CORPUSCULAR HEMOGLOBIN 26.5 pg (28.0-32.0); MEAN CORPUSCULAR VOLUME 80.6 fL (80.0-94.0); MEAN PLATELET VOLUME 8.6 fl (7.4-10.4); PLATELET 156 x1000/uL (130-400); RED BLOOD CELL COUNT 3.08 mill/uL (4.7-6.1); RED CELL DISTRIBUTION WIDTH 21.2 % (11.6-14.6)
[2019-12-25 12:48] LABS: CHLORIDE 115 mEq/L (98-107)
[2019-12-25 13:14] LABS: PLATELET ESTIMATE NORMAL
[2019-12-25] MEDS: ONDANSETRON HCL 4MG/2ML INJ IV PRN (17:02)
[2019-12-25] MEDS: ACETAMINOPHEN 325MG TABLET PO PRN (21:10)
[2019-12-25] MEDS: MORPHINE SULFATE 2 MG/ML CPJ (NOT FOR IM USE) IV PRN (22:57)
[2019-12-26] VITALS (95 sets, daily range): BP systolic 92–126; BP diastolic 50–78
[2019-12-26] MEDS: VANCOMYCIN 1 G PREMIX 200 ML IV SCH (05:33)
[2019-12-26] MEDS: MORPHINE SULFATE 2 MG/ML CPJ (NOT FOR IM USE) IV PRN (05:33)
[2019-12-26] MEDS: PIPERACILLIN/TAZOBACTAM 3.375 G in DEXT 5% WATER 100 ML IV SCH ×2 (05:33→13:53)
[2019-12-26 05:53] LABS: HEMATOCRIT. 21.9 % (42.0-52.0); HEMOGLOBIN. 7.2 g/dL (14.0-18.0); MEAN CORPUSCULAR HEMOGLOBIN 26.2 pg (28.0-32.0); MEAN CORPUSCULAR VOLUME 79.3 fL (80.0-94.0); MEAN PLATELET VOLUME 9.8 fl (7.4-10.4); PLATELET 147 x1000/uL (130-400); RED BLOOD CELL COUNT 2.76 mill/uL (4.7-6.1); RED CELL DISTRIBUTION WIDTH 21.1 % (11.6-14.6)
[2019-12-26 06:07] LABS: CHLORIDE 112 mEq/L (98-107)
[2019-12-26] MEDS: OMEPRAZOLE 20MG CAPSULE EXTENDED RELEASE PO SCH (06:13)
[2019-12-26] MEDS: FERROUS SULFATE 325MG TABLET PO SCH ×3 (06:13→16:43)
[2019-12-26 06:14] LABS: VANCOMYCIN TROUGH 14.7 ug/mL (5.0-10.0)
[2019-12-26] MEDS: LEVETIRACETAM 500MG TABLET PO SCH ×2 (09:12→20:06)
[2019-12-26] MEDS: MIDODRINE HCL 5MG TABLET PO SCH ×3 (09:13→16:42)
[2019-12-26] MEDS: ENOXAPARIN 40MG/0.4ML SYR SUBCUT SCH (09:13)
[2019-12-26] MEDS: DOCUSATE SODIUM 250MG CAPSULE PO SCH (09:13)
[2019-12-26] MEDS: SODIUM CHLORIDE 0.45% 1,000 ML IV SCH (13:00)
[2019-12-26 14:20] LABS: PLATELET ESTIMATE NORMAL
[2019-12-26] MEDS: ONDANSETRON HCL 4MG/2ML INJ IV PRN ×2 (15:51→22:31)
[2019-12-26] MEDS ORDERED: VANCOMYCIN 1250MG in DEXTROSE 5% WATER 250ML IV SCH (17:00)
[2019-12-26] MEDS: MEROPENEM 1,000 MG in SODIUM CHLORIDE 0.9% 100 ML IV SCH (17:45)
[2019-12-26] MEDS ORDERED: AMIKACIN 500MG in SODIUM CHLORIDE 0.9% 100ML IV SCH (18:30)
[2019-12-27] VITALS (50 sets, daily range): BP systolic 83–125; BP diastolic 48–71
[2019-12-27] MEDS: MEROPENEM 1,000 MG in SODIUM CHLORIDE 0.9% 100 ML IV SCH ×3 (01:47→17:40)
[2019-12-27] MEDS: SODIUM CHLORIDE 0.45% 1,000 ML IV SCH ×2 (04:15→15:17)
[2019-12-27 04:38] LABS: BASOPHILS % 0.5 % (0.0-2.0); EOSINOPHILS % 0.8 % (0.0-5.0); LYMPHOCYTES % 8.1 % (20.0-50.0); MEAN CORPUSCULAR HEMOGLOBIN 26.7 pg (28.0-32.0); MEAN CORPUSCULAR VOLUME 78.6 fL (80.0-94.0); MEAN PLATELET VOLUME 8.9 fl (7.4-10.4); MONOCYTES % 12.1 % (2.0-8.0); NEUTROPHILS % 78.5 % (40.0-76.0); PLATELET 144 x1000/uL (130-400); RED BLOOD CELL COUNT 2.56 mill/uL (4.7-6.1); RED CELL DISTRIBUTION WIDTH 20.7 % (11.6-14.6)
[2019-12-27 04:50] LABS: CHLORIDE 111 mEq/L (98-107)
[2019-12-27 05:20] LABS: HEMATOCRIT. 20.2 % (42.0-52.0); HEMOGLOBIN. 6.8 g/dL (14.0-18.0)
[2019-12-27] MEDS: OMEPRAZOLE 20MG CAPSULE EXTENDED RELEASE PO SCH (05:33)
[2019-12-27] MEDS: FERROUS SULFATE 325MG TABLET PO SCH ×3 (06:20→17:40)
[2019-12-27] MEDS: ACETAMINOPHEN 325MG TABLET PO PRN ×2 (06:21→13:23)
[2019-12-27] MEDS: LEVETIRACETAM 500MG TABLET PO SCH ×2 (08:29→20:48)
[2019-12-27] MEDS: DOCUSATE SODIUM 250MG CAPSULE PO SCH (08:29)
[2019-12-27] MEDS: MIDODRINE HCL 5MG TABLET PO SCH ×3 (08:29→17:40)
[2019-12-27] MEDS ORDERED: POTASSIUM CHLORIDE 20MEQ/PACKET PO SCH (08:30)
[2019-12-27 20:06] LABS: HEMOGLOBIN 8.5 g/dL (14.0-18.0)
[2019-12-28] VITALS (11 sets, daily range): BP systolic 102–135; BP diastolic 53–72
[2019-12-28] MEDS: MEROPENEM 1,000 MG in SODIUM CHLORIDE 0.9% 100 ML IV SCH (02:19)
[2019-12-28] MEDS: SODIUM CHLORIDE 0.45% 1,000 ML IV SCH ×2 (04:41→23:26)
[2019-12-28 07:00] LABS: BASOPHILS % 0.3 % (0.0-2.0); EOSINOPHILS % 1.1 % (0.0-5.0); HEMATOCRIT. 25.2 % (42.0-52.0); HEMOGLOBIN. 8.5 g/dL (14.0-18.0); LYMPHOCYTES % 7.3 % (20.0-50.0); MEAN CORPUSCULAR HEMOGLOBIN 27.4 pg (28.0-32.0); MEAN CORPUSCULAR VOLUME 80.8 fL (80.0-94.0); MEAN PLATELET VOLUME 9.5 fl (7.4-10.4); MONOCYTES % 13.5 % (2.0-8.0); NEUTROPHILS % 77.8 % (40.0-76.0); PLATELET 135 x1000/uL (130-400); RED BLOOD CELL COUNT 3.12 mill/uL (4.7-6.1); RED CELL DISTRIBUTION WIDTH 19.5 % (11.6-14.6)
[2019-12-28 07:10] LABS: CHLORIDE 112 mEq/L (98-107)
[2019-12-28 07:25] LABS: FOLIC ACID (FOLATE) SERUM 11.5 ng/mL (>5.38)
[2019-12-28 07:32] LABS: TOTAL IRON BINDING CAPACITY 244 ug/dL (250-450)
[2019-12-28] MEDS: FERROUS SULFATE 325MG TABLET PO SCH ×3 (08:00→18:03)
[2019-12-28] MEDS: MIDODRINE HCL 5MG TABLET PO SCH ×3 (09:00→18:03)
[2019-12-28] MEDS ORDERED: CEFTRIAXONE 2 G PREMIX 50 ML IV SCH (10:00)
[2019-12-28] MEDS: DOCUSATE SODIUM 250MG CAPSULE PO SCH (12:24)
[2019-12-28] MEDS: OMEPRAZOLE 20MG CAPSULE EXTENDED RELEASE PO SCH (12:26)
[2019-12-28] MEDS: LEVETIRACETAM 500MG TABLET PO SCH ×2 (12:26→20:09)
[2019-12-28] MEDS: CEFTRIAXONE 2 G in DEXTROSE 5% WATER 50 ML IV SCH (12:32)
[2019-12-28] MEDS: MORPHINE SULFATE 2 MG/ML CPJ (NOT FOR IM USE) IV PRN ×2 (20:10→23:38)
[2019-12-29] VITALS (10 sets, daily range): BP systolic 99–132; BP diastolic 60–72
[2019-12-29 06:29] LABS: HEMATOCRIT. 25.4 % (42.0-52.0); HEMOGLOBIN. 8.5 g/dL (14.0-18.0); MEAN CORPUSCULAR HEMOGLOBIN 27.4 pg (28.0-32.0); MEAN CORPUSCULAR VOLUME 81.3 fL (80.0-94.0); MEAN PLATELET VOLUME 9.6 fl (7.4-10.4); PLATELET 151 x1000/uL (130-400); RED BLOOD CELL COUNT 3.12 mill/uL (4.7-6.1); RED CELL DISTRIBUTION WIDTH 19.3 % (11.6-14.6)
[2019-12-29 06:43] LABS: CHLORIDE 108 mEq/L (98-107)
[2019-12-29] MEDS: OMEPRAZOLE 20MG CAPSULE EXTENDED RELEASE PO SCH (07:30)
[2019-12-29] MEDS: FERROUS SULFATE 325MG TABLET PO SCH ×3 (08:00→18:03)
[2019-12-29] MEDS: LEVETIRACETAM 500MG TABLET PO SCH ×2 (09:00→21:15)
[2019-12-29] MEDS: DOCUSATE SODIUM 250MG CAPSULE PO SCH (09:00)
[2019-12-29] MEDS: MIDODRINE HCL 5MG TABLET PO SCH ×3 (09:00→18:03)
[2019-12-29 14:20] LABS: PLATELET ESTIMATE NORMAL
[2019-12-29] MEDS: CEFTRIAXONE 2 G in DEXTROSE 5% WATER 50 ML IV SCH (14:31)
[2019-12-29] MEDS: SODIUM CHLORIDE 0.45% 1,000 ML IV SCH ×2 (14:32→21:15)
[2019-12-29] MEDS: MORPHINE SULFATE 2 MG/ML CPJ (NOT FOR IM USE) IV PRN (21:10)
[2019-12-30] VITALS (12 sets, daily range): BP systolic 99–138; BP diastolic 54–81
[2019-12-30] MEDS: MORPHINE SULFATE 2 MG/ML CPJ (NOT FOR IM USE) IV PRN ×3 (03:58→19:55)
[2019-12-30] MEDS: DOCUSATE SODIUM 250MG CAPSULE PO SCH (09:33)
[2019-12-30] MEDS: MIDODRINE HCL 5MG TABLET PO SCH ×3 (09:33→17:00)
[2019-12-30] MEDS: OMEPRAZOLE 20MG CAPSULE EXTENDED RELEASE PO SCH (09:33)
[2019-12-30] MEDS: LEVETIRACETAM 500MG TABLET PO SCH ×2 (09:33→20:07)
[2019-12-30] MEDS: FERROUS SULFATE 325MG TABLET PO SCH ×3 (09:33→18:00)
[2019-12-30] MEDS: SODIUM CHLORIDE 0.45% 1,000 ML IV SCH ×2 (09:35→23:25)
[2019-12-30] MEDS: CEFTRIAXONE 2 G in DEXTROSE 5% WATER 50 ML IV SCH ×2 (10:59→20:07)
[2019-12-30] MEDS ORDERED: PIPERACILLIN/TAZ 3.375G PREMIX 50 ML IV SCH (14:00)
[2019-12-30] MEDS ORDERED: PIPERACILLIN/TAZOBACTAM 3.375 G in DEXT 5% WATER 100 ML IV SCH (14:00)
[2019-12-30] MEDS ORDERED: CEFTRIAXONE 2 G PREMIX 50 ML IV SCH (18:00)
[2019-12-30] MEDS: METRONIDAZOLE 500 MG PREMIX 100 ML IV SCH (19:54)
[2019-12-30] MEDS: PANTOPRAZOLE SODIUM 40 MG/VIAL IV SCH (20:07)
[2019-12-30] MEDS: ACETAMINOPHEN 325MG TABLET PO PRN (21:33)
[2019-12-31] VITALS (8 sets, daily range): BP systolic 101–146; BP diastolic 52–80
[2019-12-31] MEDS: METRONIDAZOLE 500 MG PREMIX 100 ML IV SCH ×3 (04:09→21:13)
[2019-12-31 05:34] LABS: INR 1.1; PARTIAL THROMBOPLASTIN TIME 29.8 sec (23.4-31.0); PROTHROMBIN TIME 11.3 sec (9.6-11.0)
[2019-12-31 05:39] LABS: CHLORIDE 108 mEq/L (98-107)
[2019-12-31 06:00] LABS: HEMATOCRIT. 27.4 % (42.0-52.0); MEAN CORPUSCULAR HEMOGLOBIN 26.7 pg (28.0-32.0); MEAN CORPUSCULAR VOLUME 81.2 fL (80.0-94.0); MEAN PLATELET VOLUME 9.1 fl (7.4-10.4); PLATELET 199 x1000/uL (130-400); RED BLOOD CELL COUNT 3.37 mill/uL (4.7-6.1); RED CELL DISTRIBUTION WIDTH 19.6 % (11.6-14.6)
[2019-12-31] MEDS: DOCUSATE SODIUM 250MG CAPSULE PO SCH (07:25)
[2019-12-31] MEDS: FERROUS SULFATE 325MG TABLET PO SCH ×3 (07:25→18:01)
[2019-12-31] MEDS: MIDODRINE HCL 5MG TABLET PO SCH ×3 (09:00→17:59)
[2019-12-31] MEDS ORDERED: IOHEXOL-300 100 ML BOTTLE ONE ×2 (10:40→21:47)
[2019-12-31] MEDS: SODIUM CHLORIDE 0.45% 1,000 ML IV SCH (11:21)
[2019-12-31] MEDS ORDERED: FENTANYL CITRATE/PF 50MCG/ML 2ML VIAL ONE (12:23)
[2019-12-31] MEDS ORDERED: MIDAZOLAM HCL 2 MG/2 ML VIAL ONE (12:23)
[2019-12-31] MEDS ORDERED: LIDOCAINE HCL/PF 1% 10 MG/ML 5ML VIAL ONE (12:26)
[2019-12-31] MEDS ORDERED: ETOMIDATE 2MG/ML 10ML VIAL IV ONE (12:26)
[2019-12-31] MEDS ORDERED: ROCURONIUM BROMIDE 10MG/ML VIAL 5ML IV ONE (12:27)
[2019-12-31 12:40] LABS: PLATELET ESTIMATE NORMAL
[2019-12-31] MEDS ORDERED: GLYCOPYRROLATE 0.2 MG/ML 2ML VIAL ONE ×2 (13:04→13:12)
[2019-12-31] MEDS ORDERED: DEXAMETHASONE 4MG/ML 1ML VIAL ONE (13:04)
[2019-12-31] MEDS ORDERED: NEOSTIGMINE METHYLSULFATE 1MG/ML 10 ML VIAL ONE (13:11)
[2019-12-31] MEDS ORDERED: ONDANSETRON HCL 4MG/2ML INJ ONE (13:12)
[2019-12-31] MEDS ORDERED: METOCLOPRAMIDE HCL 10MG/2ML VIAL ONE (13:12)
[2019-12-31] MEDS ORDERED: DIATR MEGLU/DIATRIZOATE SOLN 30ML PO SCH (14:45)
[2019-12-31] MEDS: LEVETIRACETAM 500MG TABLET PO SCH ×2 (17:55→21:20)
[2019-12-31] MEDS: PANTOPRAZOLE SODIUM 40 MG/VIAL IV SCH ×2 (17:55→21:19)
[2019-12-31] MEDS: CEFTRIAXONE 2 G in DEXTROSE 5% WATER 50 ML IV SCH (22:30)
[2019-12-31] MEDS: ACETAMINOPHEN 325MG TABLET PO PRN (22:31)
[2020-01-01] VITALS (12 sets, daily range): BP systolic 105–132; BP diastolic 57–78
[2020-01-01] MEDS: METRONIDAZOLE 500 MG PREMIX 100 ML IV SCH ×3 (04:33→19:28)
[2020-01-01 06:33] LABS: BASOPHILS % 0.3 % (0.0-2.0); HEMOGLOBIN. 9.2 g/dL (14.0-18.0); LYMPHOCYTES % 7.9 % (20.0-50.0); MEAN CORPUSCULAR HEMOGLOBIN 26.8 pg (28.0-32.0); MEAN CORPUSCULAR VOLUME 81.5 fL (80.0-94.0); MEAN PLATELET VOLUME 9.1 fl (7.4-10.4); MONOCYTES % 7.5 % (2.0-8.0); NEUTROPHILS % 84.3 % (40.0-76.0); PLATELET 263 x1000/uL (130-400); RED BLOOD CELL COUNT 3.44 mill/uL (4.7-6.1); RED CELL DISTRIBUTION WIDTH 19.7 % (11.6-14.6)
[2020-01-01 07:37] LABS: CHLORIDE 106 mEq/L (98-107)
[2020-01-01] MEDS: PANTOPRAZOLE SODIUM 40 MG/VIAL IV SCH ×2 (08:40→20:39)
[2020-01-01] MEDS: LEVETIRACETAM 500MG TABLET PO SCH ×2 (08:40→20:39)
[2020-01-01] MEDS: DOCUSATE SODIUM 250MG CAPSULE PO SCH (08:40)
[2020-01-01] MEDS: FERROUS SULFATE 325MG TABLET PO SCH ×3 (08:41→17:59)
[2020-01-01] MEDS: MIDODRINE HCL 5MG TABLET PO SCH ×3 (08:41→17:59)
[2020-01-01] MEDS: ACETAMINOPHEN 325MG TABLET PO PRN (08:41)
[2020-01-01] MEDS: SODIUM CHLORIDE 0.45% 1,000 ML IV SCH (14:35)
[2020-01-01] MEDS ORDERED: NA PHOS,M-B/NA PHOS,DI-BA ENEMA 118ML PR NR (19:00)
[2020-01-01] MEDS: DEXT 5%/0.45% NACL 1000ML 1,000 ML IV SCH (19:03)
[2020-01-01] MEDS: MORPHINE SULFATE 2 MG/ML CPJ (NOT FOR IM USE) IV PRN (20:42)
[2020-01-01] MEDS: CEFTRIAXONE 2 G in DEXTROSE 5% WATER 50 ML IV SCH (20:43)
[2020-01-01] MEDS: PIPERACILLIN/TAZOBACTAM 3.375 G in DEXT 5% WATER 100 ML IV SCH (21:35)
[2020-01-01] MEDS ORDERED: PIPERACILLIN/TAZOBACTAM 3.375 G/VIAL IV SCH (22:00)
[2020-01-02] VITALS (12 sets, daily range): BP systolic 112–141; BP diastolic 56–75
[2020-01-02] MEDS: METRONIDAZOLE 500 MG PREMIX 100 ML IV SCH ×3 (03:13→20:03)
[2020-01-02] MEDS: PIPERACILLIN/TAZOBACTAM 3.375 G in DEXT 5% WATER 100 ML IV SCH ×3 (04:23→22:38)
[2020-01-02] MEDS: DEXT 5%/0.45% NACL 1000ML 1,000 ML IV SCH ×2 (05:24→15:01)
[2020-01-02] MEDS: PANTOPRAZOLE SODIUM 40 MG/VIAL IV SCH ×2 (08:41→22:38)
[2020-01-02] MEDS: MIDODRINE HCL 5MG TABLET PO SCH ×3 (08:41→18:19)
[2020-01-02] MEDS: LEVETIRACETAM 500MG TABLET PO SCH ×2 (08:41→22:37)
[2020-01-02] MEDS: FERROUS SULFATE 325MG TABLET PO SCH ×3 (08:41→18:19)
[2020-01-02] MEDS: DOCUSATE SODIUM 250MG CAPSULE PO SCH (09:08)
[2020-01-02] MEDS: CEFTRIAXONE 2 G in DEXTROSE 5% WATER 50 ML IV SCH (22:37)
[2020-01-03] VITALS (12 sets, daily range): BP systolic 112–147; BP diastolic 69–82
[2020-01-03] MEDS: METRONIDAZOLE 500 MG PREMIX 100 ML IV SCH ×3 (03:39→20:07)
[2020-01-03] MEDS: DEXT 5%/0.45% NACL 1000ML 1,000 ML IV SCH ×3 (03:40→22:10)
[2020-01-03] MEDS: PIPERACILLIN/TAZOBACTAM 3.375 G in DEXT 5% WATER 100 ML IV SCH ×2 (05:02→12:04)
[2020-01-03 06:43] LABS: HEMATOCRIT. 30.6 % (42.0-52.0); HEMOGLOBIN. 9.9 g/dL (14.0-18.0); LYMPHOCYTES % 10.1 % (20.0-50.0); MEAN CORPUSCULAR HEMOGLOBIN 26.8 pg (28.0-32.0); MEAN CORPUSCULAR VOLUME 82.6 fL (80.0-94.0); MEAN PLATELET VOLUME 8.5 fl (7.4-10.4); MONOCYTES % 9.1 % (2.0-8.0); NEUTROPHILS % 76.8 % (40.0-76.0); PLATELET 279 x1000/uL (130-400); RED CELL DISTRIBUTION WIDTH 19.8 % (11.6-14.6)
[2020-01-03 07:04] LABS: CHLORIDE 109 mEq/L (98-107)
[2020-01-03] MEDS: LEVETIRACETAM 500MG TABLET PO SCH ×2 (08:05→22:10)
[2020-01-03] MEDS: FERROUS SULFATE 325MG TABLET PO SCH ×3 (08:05→17:17)
[2020-01-03] MEDS: PANTOPRAZOLE SODIUM 40 MG/VIAL IV SCH ×2 (08:06→22:10)
[2020-01-03] MEDS: DOCUSATE SODIUM 250MG CAPSULE PO SCH (08:06)
[2020-01-03] MEDS: MIDODRINE HCL 5MG TABLET PO SCH ×3 (08:06→17:17)
[2020-01-03] MEDS: CEFTRIAXONE 2 G in DEXTROSE 5% WATER 50 ML IV SCH (22:10)
[2020-01-04] VITALS (12 sets, daily range): BP systolic 106–134; BP diastolic 65–79
[2020-01-04] MEDS: ONDANSETRON HCL 4MG/2ML INJ IV PRN ×2 (03:55→23:05)
[2020-01-04 07:06] LABS: CHLORIDE 110 mEq/L (98-107)
[2020-01-04 07:07] LABS: BASOPHILS % 0.6 % (0.0-2.0); EOSINOPHILS % 2.3 % (0.0-5.0); HEMATOCRIT. 29.8 % (42.0-52.0); HEMOGLOBIN. 9.8 g/dL (14.0-18.0); LYMPHOCYTES % 9.1 % (20.0-50.0); MEAN CORPUSCULAR HEMOGLOBIN 26.9 pg (28.0-32.0); MEAN PLATELET VOLUME 8.6 fl (7.4-10.4); PLATELET 304 x1000/uL (130-400); RED BLOOD CELL COUNT 3.63 mill/uL (4.7-6.1); RED CELL DISTRIBUTION WIDTH 20.5 % (11.6-14.6)
[2020-01-04] MEDS: PANTOPRAZOLE SODIUM 40 MG/VIAL IV SCH ×2 (08:07→20:36)
[2020-01-04] MEDS: MIDODRINE HCL 5MG TABLET PO SCH ×3 (08:07→17:12)
[2020-01-04] MEDS: FERROUS SULFATE 325MG TABLET PO SCH ×3 (08:07→17:13)
[2020-01-04] MEDS: LEVETIRACETAM 500MG TABLET PO SCH ×2 (08:07→20:36)
[2020-01-04] MEDS: DEXT 5%/0.45% NACL 1000ML 1,000 ML IV SCH ×2 (08:10→17:13)
[2020-01-04] MEDS: METRONIDAZOLE 500 MG PREMIX 100 ML IV SCH (12:19)
[2020-01-04] MEDS: HYDROCODONE/ACETAMINOPHEN 5/325MG TABLET PO PRN ×2 (12:57→23:07)
[2020-01-04] MEDS ORDERED: METRONIDAZOLE 500MG TABLET PO SCH (20:00)
[2020-01-04] MEDS: CEFTRIAXONE 2 G in DEXTROSE 5% WATER 50 ML IV SCH (20:35)
[2020-01-05] VITALS (12 sets, daily range): BP systolic 98–143; BP diastolic 59–78
[2020-01-05] MEDS: DEXT 5%/0.45% NACL 1000ML 1,000 ML IV SCH ×2 (03:27→14:39)
[2020-01-05] MEDS: ONDANSETRON HCL 4MG/2ML INJ IV PRN (03:50)
[2020-01-05] MEDS: FERROUS SULFATE 325MG TABLET PO SCH ×3 (10:42→18:20)
[2020-01-05] MEDS: PANTOPRAZOLE SODIUM 40 MG/VIAL IV SCH ×2 (10:42→20:13)
[2020-01-05] MEDS: LEVETIRACETAM 500MG TABLET PO SCH ×2 (10:42→20:13)
[2020-01-05] MEDS: MIDODRINE HCL 5MG TABLET PO SCH ×3 (10:42→18:20)
[2020-01-05] MEDS: HYDROCODONE/ACETAMINOPHEN 5/325MG TABLET PO PRN ×2 (14:38→20:14)
[2020-01-05] MEDS: CEFTRIAXONE 2 G in DEXTROSE 5% WATER 50 ML IV SCH (23:02)
[2020-01-06] VITALS (9 sets, daily range): BP systolic 98–139; BP diastolic 56–92
[2020-01-06] MEDS: DEXT 5%/0.45% NACL 1000ML 1,000 ML IV SCH ×3 (00:34→21:27)
[2020-01-06] MEDS: METRONIDAZOLE 500 MG PREMIX 100 ML IV SCH ×4 (00:34→23:29)
[2020-01-06] MEDS: HYDROCODONE/ACETAMINOPHEN 5/325MG TABLET PO PRN ×2 (00:35→20:40)
[2020-01-06] MEDS: FERROUS SULFATE 325MG TABLET PO SCH ×3 (08:50→18:02)
[2020-01-06] MEDS: LEVETIRACETAM 500MG TABLET PO SCH ×2 (08:50→21:27)
[2020-01-06] MEDS: PANTOPRAZOLE SODIUM 40 MG/VIAL IV SCH ×2 (08:50→20:26)
[2020-01-06] MEDS: MIDODRINE HCL 5MG TABLET PO SCH ×3 (08:50→18:02)
[2020-01-06] MEDS: CEFTRIAXONE 2 G in DEXTROSE 5% WATER 50 ML IV SCH (20:26)
[2020-01-07] VITALS (10 sets, daily range): BP systolic 113–157; BP diastolic 62–92
[2020-01-07] MEDS: HYDROCODONE/ACETAMINOPHEN 5/325MG TABLET PO PRN ×2 (02:22→21:31)
[2020-01-07] MEDS: DEXT 5%/0.45% NACL 1000ML 1,000 ML IV SCH ×2 (06:15→14:59)
[2020-01-07] MEDS: METRONIDAZOLE 500 MG PREMIX 100 ML IV SCH ×3 (09:07→23:10)
[2020-01-07] MEDS: PANTOPRAZOLE SODIUM 40 MG/VIAL IV SCH ×2 (09:07→20:11)
[2020-01-07] MEDS: FERROUS SULFATE 325MG TABLET PO SCH ×3 (09:08→17:07)
[2020-01-07] MEDS: LEVETIRACETAM 500MG TABLET PO SCH ×2 (09:08→20:11)
[2020-01-07] MEDS: MIDODRINE HCL 5MG TABLET PO SCH ×3 (09:08→17:14)
[2020-01-07] MEDS: CEFTRIAXONE 2 G in DEXTROSE 5% WATER 50 ML IV SCH (20:11)
[2020-01-08] VITALS (9 sets, daily range): BP systolic 104–133; BP diastolic 59–76
[2020-01-08] MEDS: DEXT 5%/0.45% NACL 1000ML 1,000 ML IV SCH ×2 (00:08→11:03)
[2020-01-08] MEDS: HYDROCODONE/ACETAMINOPHEN 5/325MG TABLET PO PRN (01:39)
[2020-01-08] MEDS: METRONIDAZOLE 500 MG PREMIX 100 ML IV SCH ×2 (08:30→16:21)
[2020-01-08] MEDS: PANTOPRAZOLE SODIUM 40 MG/VIAL IV SCH ×2 (08:30→20:11)
[2020-01-08] MEDS: LEVETIRACETAM 500MG TABLET PO SCH ×2 (08:30→20:11)
[2020-01-08] MEDS: MIDODRINE HCL 5MG TABLET PO SCH ×3 (08:31→16:21)
[2020-01-08] MEDS: FERROUS SULFATE 325MG TABLET PO SCH ×3 (08:31→17:42)
[2020-01-08] MEDS: ONDANSETRON HCL 4MG/2ML INJ IV PRN (20:11)
[2020-01-08] MEDS: CEFTRIAXONE 2 G in DEXTROSE 5% WATER 50 ML IV SCH (20:11)
== END 2020-01-08 22:03 | DRG 720 ==
LOC: ER 18:02 → MICUNO 12-25 00:37 → EDBEDREQTM 12-25 00:40 → EDBEDREQDT 12-25 00:40 → EDBEDREQSVC 12-25 00:40 → EDBEDREQ 12-25 00:40 → ENRESERV 12-25 00:50 → MICUSO 12-25 03:15 → MICUNO 12-26 04:30 → 5EST 12-27 10:45
PROVIDERS: ADMIT Internal Medicine; ATTEND Internal Medicine
PROC: 06HY33Z Insertion of Infusion Device into Lower Vein, Percutaneous Approach (ICD-10-PCS; principal; 2019-12-24)
PROC: B54BZZA Ultrasonography of Right Lower Extremity Veins, Guidance (ICD-10-PCS; 2019-12-24)
PROC: 02HV33Z Insertion of Infusion Device into Superior Vena Cava, Percutaneous Approach (ICD-10-PCS; 2019-12-25)
PROC: B548ZZA Ultrasonography of Superior Vena Cava, Guidance (ICD-10-PCS; 2019-12-25)
PROC: 30233N1 Transfusion of Nonautologous Red Blood Cells into Peripheral Vein, Percutaneous Approach (ICD-10-PCS; 2019-12-27)
PROC: 0DJ08ZZ Inspection of Upper Intestinal Tract, Via Natural or Artificial Opening Endoscopic (ICD-10-PCS; 2019-12-31)
DX: A41.51 Sepsis due to Escherichia coli [E. coli] (principal); R65.21 Severe sepsis with septic shock; G40.909 Epilepsy, unspecified, not intractable, without status epilepticus; E11.9 Type 2 diabetes mellitus without complications; K21.00 Gastro-esophageal reflux disease with esophagitis, without bleeding; J44.9 Chronic obstructive pulmonary disease, unspecified; F20.9 Schizophrenia, unspecified; I10 Essential (primary) hypertension; N39.0 Urinary tract infection, site not specified; E87.2 Acidosis; Z20.828 Contact with and (suspected) exposure to other viral communicable diseases; D50.9 Iron deficiency anemia, unspecified; K31.89 Other diseases of stomach and duodenum; K29.70 Gastritis, unspecified, without bleeding; K44.9 Diaphragmatic hernia without obstruction or gangrene; K56.41 Fecal impaction; J98.11 Atelectasis; K80.40 Calculus of bile duct with cholecystitis, unspecified, without obstruction; K86.89 Other specified diseases of pancreas; Z86.718 Personal history of other venous thrombosis and embolism; Z79.1 Long term (current) use of non-steroidal anti-inflammatories (NSAID); Z79.899 Other long term (current) drug therapy; Z95.828 Presence of other vascular implants and grafts; Z86.73 Personal history of transient ischemic attack (TIA), and cerebral infarction without residual deficits; Z87.11 Personal history of peptic ulcer disease; Z87.01 Personal history of pneumonia (recurrent)
CPT/HCPCS: 36415; 71045; 74018; 74177; 76700; 78227; 80048; 80053; 80076; 80202; 81003; 82248; 82270; 82607; 82728; 82746; 82962; 83036; 83540; 83550; 83605; 84145; 84484; 85014; 85018; 85025; 86850; 86900; 86920; 87077; 87186; 87426; 87635; 93005; 99291; A6261; A9537; C1726; C1769; C9113; J0278; J0696; J1100; J1650; J2185; J2250; J2270; J2405; J2543; J2710; J2765; J3010; J3370; J3490; J7030; J7040; J7050; J7060; J7070; P9016; Q9963; Q9967

== ENCOUNTER 2020-01-09 16:53 | Inpatient (IN) | payer MEDICAID ==
[~2020-01-09] VITALS: Ht 175.3 cm; Wt 59.4 kg
[~2020-01-09 16:53] MED LIST changes: +CALC600T12 MT; -CLON0.1T PO; +DIPH25CA83 MT; -DOCU250C69 MT; +DOCU50LI25 MT; -FAMO20TA8 MT; -KEPP500 MT; +KEPPSOL MT; +MAGN400C MT; +ONDA4TAB5 MT; +PROT40 MT; +RISP4 MT
[2020-01-09] MEDS: MORPHINE SULFATE 4 MG/ML CPJ (NOT FOR IM USE) IV STA ×2 (17:28→17:46)
[2020-01-09] MEDS: SODIUM CHLORIDE 0.9% 1,000 ML IV ONE ×2 (17:28→17:47)
[2020-01-09] MEDS: ONDANSETRON HCL 4MG/2ML INJ IV STA ×2 (17:28→17:47)
[2020-01-09 18:03] LABS: BASOPHILS % 0.8 % (0.0-2.0); EOSINOPHILS % 1.3 % (0.0-5.0); HEMATOCRIT. 29.5 % (42.0-52.0); HEMOGLOBIN. 9.7 g/dL (14.0-18.0); MEAN CORPUSCULAR HEMOGLOBIN 27.6 pg (28.0-32.0); MEAN CORPUSCULAR VOLUME 84.3 fL (80.0-94.0); MEAN PLATELET VOLUME 8.1 fl (7.4-10.4); MONOCYTES % 7.9 % (2.0-8.0); PLATELET 371 x1000/uL (130-400); RED CELL DISTRIBUTION WIDTH 25.7 % (11.6-14.6)
[2020-01-09 18:08] LABS: CHLORIDE 107 mEq/L (98-107)
[2020-01-09 18:11] LABS: INR 1.1; PROTHROMBIN TIME 11.4 sec (9.6-11.0)
[2020-01-09] MEDS ORDERED: IOHEXOL-300 100 ML BOTTLE ONE ×2 (18:57→22:27)
[2020-01-09 19:36] LABS: PLATELET ESTIMATE NORMAL
[2020-01-09 21:03] VITALS: BP 118/64
[2020-01-09 21:21] VITALS: BP 112/64
[2020-01-09] MEDS ORDERED: GUAIFENESIN 200MG/10ML SUGAR FREE UDC PO PRN (22:00)
[2020-01-09] MEDS ORDERED: HALOPERIDOL LACTATE 5MG/ML VIAL IM PRN (22:00)
[2020-01-09] MEDS ORDERED: DOCUSATE SODIUM 100MG CAPSULE PO PRN (22:00)
[2020-01-09] MEDS ORDERED: CLONIDINE 0.1MG TABLET PO PRN (22:00)
[2020-01-09] MEDS ORDERED: ZOLPIDEM TARTRATE 5MG TABLET PO PRN (22:00)
[2020-01-09] MEDS ORDERED: IPRATROPIUM/ALBUTEROL 0.5-3(2.5)MG/3ML NEB NEB PRN (22:00)
[2020-01-09] MEDS ORDERED: MAGNESIUM/ALUMINUM HYDROXIDE/SIMETHICONE 30ML UDC PO PRN (22:00)
[2020-01-09] MEDS ORDERED: ACETAMINOPHEN 325MG TABLET PO PRN (22:00)
[2020-01-09] MEDS ORDERED: NITROGLYCERIN 0.4MG TABLET SL SL PRN (22:00)
[2020-01-09] MEDS ORDERED: DEXTROSE 50% WATER 50ML SYRINGE IV PRN (22:15)
[2020-01-09] MEDS: DEXT 5%/LACTATED RINGERS 1,000 ML IV SCH (22:57)
[2020-01-09] MEDS ORDERED: MINERAL OIL ENEMA 133ML PR NR (23:00)
[2020-01-10 00:05] VITALS: BP 113/63
[2020-01-10 00:46] LABS: TOTAL IRON BINDING CAPACITY 260 ug/dL (250-450)
[2020-01-10 00:48] LABS: CREATINE KINASE 29 IU/L (39-308)
[2020-01-10 00:50] LABS: CREATINE KINASE MB FRACTION < 1.0 ng/mL (0.5-3.6)
[2020-01-10 01:07] LABS: FOLIC ACID (FOLATE) SERUM 11.8 ng/mL (>5.38)
[2020-01-10 04:00] VITALS: BP 120/68
[2020-01-10] MEDS: LACTULOSE 20G/30ML UDC PO SCH ×3 (05:37→22:35)
[2020-01-10] MEDS: INSULIN LISPRO 100 UNITS/ML SUBCUT SCH ×4 (05:54→21:00)
[2020-01-10] MEDS: BLOOD SUGAR DIAGNOSTIC STRIP TEST SCH ×4 (05:54→21:09)
[2020-01-10 06:31] LABS: CREATINE KINASE 31 IU/L (39-308)
[2020-01-10 06:32] LABS: CREATINE KINASE MB FRACTION < 1.0 ng/mL (0.5-3.6)
[2020-01-10 08:00] VITALS: BP 108/57
[2020-01-10] MEDS: ASCORBIC ACID 500 MG TABLET PO SCH ×2 (09:36→21:08)
[2020-01-10] MEDS: LEVETIRACETAM 500MG/5ML CUP PO SCH ×2 (09:36→21:08)
[2020-01-10] MEDS: FAMOTIDINE 20MG TABLET PO SCH ×2 (09:36→21:08)
[2020-01-10] MEDS: ENOXAPARIN 40MG/0.4ML SYR SUBCUT SCH (09:37)
[2020-01-10] MEDS: ZINC SULFATE 220 MG ( 50 ) CAPSULE PO SCH (09:45)
[2020-01-10 12:00] VITALS: BP 116/61
[2020-01-10] MEDS: DEXT 5%/LACTATED RINGERS 1,000 ML IV SCH (13:54)
[2020-01-10 16:00] VITALS: BP 120/65
[2020-01-10 20:00] VITALS: BP 103/60
[2020-01-10] MEDS: GABAPENTIN SOLN 300MG/6ML UDC PO SCH (22:35)
[2020-01-11] VITALS: BP 120/69
[2020-01-11] MEDS: DEXT 5%/LACTATED RINGERS 1,000 ML IV SCH ×2 (01:51→14:00)
[2020-01-11 04:00] VITALS: BP 123/61
[2020-01-11] MEDS: LACTULOSE 20G/30ML UDC PO SCH ×3 (06:14→22:23)
[2020-01-11] MEDS: BLOOD SUGAR DIAGNOSTIC STRIP TEST SCH ×4 (06:15→20:50)
[2020-01-11] MEDS: INSULIN LISPRO 100 UNITS/ML SUBCUT SCH ×4 (07:50→20:53)
[2020-01-11 07:55] VITALS: BP 108/53
[2020-01-11] MEDS: ZINC SULFATE 220 MG ( 50 ) CAPSULE PO SCH (09:03)
[2020-01-11] MEDS: LEVETIRACETAM 500MG/5ML CUP PO SCH ×2 (09:03→20:49)
[2020-01-11] MEDS: ASCORBIC ACID 500 MG TABLET PO SCH ×2 (09:03→20:50)
[2020-01-11] MEDS: ENOXAPARIN 40MG/0.4ML SYR SUBCUT SCH (09:03)
[2020-01-11] MEDS: FAMOTIDINE 20MG TABLET PO SCH ×2 (09:03→20:50)
[2020-01-11 11:52] VITALS: BP 116/69
[2020-01-11] MEDS: ONDANSETRON HCL 4MG/2ML INJ IV PRN (15:12)
[2020-01-11] MEDS: KETOROLAC 30MG/ML VIAL IV PRN (15:14)
[2020-01-11 16:17] VITALS: BP 114/58
[2020-01-11 20:00] VITALS: BP 115/70
[2020-01-11] MEDS: GABAPENTIN SOLN 300MG/6ML UDC PO SCH (20:50)
[2020-01-12] VITALS: BP 110/71
[2020-01-12 04:00] VITALS: BP 110/59
[2020-01-12] MEDS: DEXT 5%/LACTATED RINGERS 1,000 ML IV SCH ×3 (05:22→18:36)
[2020-01-12] MEDS: ONDANSETRON HCL 4MG/2ML INJ IV PRN (05:22)
[2020-01-12] MEDS: LACTULOSE 20G/30ML UDC PO SCH ×3 (05:57→21:10)
[2020-01-12] MEDS: BLOOD SUGAR DIAGNOSTIC STRIP TEST SCH ×4 (06:10→21:10)
[2020-01-12] MEDS: INSULIN LISPRO 100 UNITS/ML SUBCUT SCH ×4 (07:50→21:00)
[2020-01-12 08:00] VITALS: BP 134/87
[2020-01-12] MEDS: LEVETIRACETAM 500MG/5ML CUP PO SCH ×2 (08:28→21:10)
[2020-01-12] MEDS: ENOXAPARIN 40MG/0.4ML SYR SUBCUT SCH (08:29)
[2020-01-12] MEDS: FAMOTIDINE 20MG TABLET PO SCH ×2 (08:30→21:10)
[2020-01-12] MEDS: KETOROLAC 30MG/ML VIAL IV PRN ×2 (08:30→14:25)
[2020-01-12] MEDS: ZINC SULFATE 220 MG ( 50 ) CAPSULE PO SCH (08:30)
[2020-01-12] MEDS: ASCORBIC ACID 500 MG TABLET PO SCH ×2 (08:30→21:10)
[2020-01-12 12:00] VITALS: BP 126/67
[2020-01-12] MEDS: METOCLOPRAMIDE 10MG/10 ML UDC PO SCH ×2 (12:20→18:27)
[2020-01-12 16:00] VITALS: BP 93/53
[2020-01-12 20:00] VITALS: BP 94/51
[2020-01-12] MEDS: GABAPENTIN SOLN 300MG/6ML UDC PO SCH (21:10)
[2020-01-13] VITALS: BP 96/53
[2020-01-13] MEDS: ACETAMINOPHEN 325MG TABLET PO PRN ×2 (00:42→04:55)
[2020-01-13 04:00] VITALS: BP 90/47
[2020-01-13] MEDS: LACTULOSE 20G/30ML UDC PO SCH ×2 (06:07→15:04)
[2020-01-13] MEDS: BLOOD SUGAR DIAGNOSTIC STRIP TEST SCH ×3 (06:15→17:20)
[2020-01-13] MEDS: METOCLOPRAMIDE 10MG/10 ML UDC PO SCH ×3 (06:46→17:25)
[2020-01-13] MEDS: INSULIN LISPRO 100 UNITS/ML SUBCUT SCH ×3 (07:50→17:39)
[2020-01-13 08:00] VITALS: BP 93/50
[2020-01-13] MEDS: ASCORBIC ACID 500 MG TABLET PO SCH (08:27)
[2020-01-13] MEDS: ENOXAPARIN 40MG/0.4ML SYR SUBCUT SCH (08:27)
[2020-01-13] MEDS: LEVETIRACETAM 500MG/5ML CUP PO SCH (08:27)
[2020-01-13] MEDS: ZINC SULFATE 220 MG ( 50 ) CAPSULE PO SCH (08:27)
[2020-01-13] MEDS: FAMOTIDINE 20MG TABLET PO SCH (08:27)
[2020-01-13 12:00] VITALS: BP 109/50
[2020-01-13 16:00] VITALS: BP 110/58
[2020-01-13 17:02] VITALS: BP 105/56
== END 2020-01-13 19:06 | DRG 52 ==
LOC: ER 16:53 → 7EST 18:50 → EDBEDREQTM 18:59 → EDBEDREQ 18:59 → ENRESERV 19:50 → 7EST 20:57 → 6WST 01-10 18:55
PROVIDERS: ADMIT Internal Medicine; ATTEND Internal Medicine
DX: G92 Toxic encephalopathy (principal); K59.00 Constipation, unspecified; D63.8 Anemia in other chronic diseases classified elsewhere; E11.9 Type 2 diabetes mellitus without complications; E44.1 Mild protein-calorie malnutrition; F20.9 Schizophrenia, unspecified; F79 Unspecified intellectual disabilities; I10 Essential (primary) hypertension; G40.909 Epilepsy, unspecified, not intractable, without status epilepticus; J44.9 Chronic obstructive pulmonary disease, unspecified; K21.9 Gastro-esophageal reflux disease without esophagitis; Z20.828 Contact with and (suspected) exposure to other viral communicable diseases; Z86.718 Personal history of other venous thrombosis and embolism; Z95.828 Presence of other vascular implants and grafts; Z79.4 Long term (current) use of insulin; Z68.1 Body mass index [BMI] 19.9 or less, adult
CPT/HCPCS: 36415; 71045; 74177; 80053; 82550; 82553; 82607; 82746; 82962; 83036; 83540; 83550; 83605; 84439; 84443; 84484; 85025; 87635; 92610; 93005; 93970; 96374; 99285; J1650; J1885; J2270; J2405; J7030; J7121; J8597; Q9967

== ENCOUNTER 2020-07-16 22:35 | Inpatient (IN) | payer MEDICAID ==
[~2020-07-16] VITALS: Ht 162.6 cm; Wt 61.9 kg
[~2020-07-16 22:35] MED LIST changes: +CALC-1139 MT; -CALC600T12 MT; -GABA-531 MT; +GABA-532 MT; -RISP1TAB26 MT; +RISP1TAB97 MT
[2020-07-16] MEDS ORDERED: ONDANSETRON HCL 4MG/2ML INJ IV STA (22:49)
[2020-07-16] MEDS ORDERED: PANTOPRAZOLE SODIUM 40 MG/VIAL IV STA (22:49)
[2020-07-16] MEDS ORDERED: SODIUM CHLORIDE 0.9% 1,000 ML IV ONE (23:00)
[2020-07-16 23:45] LABS: CHLORIDE 107 mEq/L (98-107)
[2020-07-16 23:46] LABS: BASOPHILS % 0.3 % (0.0-2.0); EOSINOPHILS % 0.5 % (0.0-5.0); HEMATOCRIT. 27.2 % (42.0-52.0); LYMPHOCYTES % 7.4 % (20.0-50.0); MEAN CORPUSCULAR HEMOGLOBIN 27.7 pg (28.0-32.0); MEAN CORPUSCULAR VOLUME 83.9 fL (80.0-94.0); MEAN PLATELET VOLUME 8.4 fl (7.4-10.4); MONOCYTES % 4.9 % (2.0-8.0); NEUTROPHILS % 86.9 % (40.0-76.0); PLATELET 292 x1000/uL (130-400); RED BLOOD CELL COUNT 3.24 mill/uL (4.7-6.1); RED CELL DISTRIBUTION WIDTH 19.1 % (11.6-14.6)
[2020-07-16 23:50] LABS: INR 1.1; PROTHROMBIN TIME 11.3 sec (9.6-11.0)
[2020-07-17] VITALS (9 sets, daily range): BP systolic 92–131; BP diastolic 49–71
[2020-07-17 01:18] LABS: CLARITY URINE CLEAR (CLEAR); COLOR URINE YELLOW (YELLOW); KETONES URINE TRACE (NEGATIVE); LEUKOCYTE ESTERASE URINE TRACE (NEGATIVE); NITRITE URINE NEGATIVE (NEGATIVE); OCCULT BLOOD URINE NEGATIVE (NEGATIVE); PH URINE 6.5 (4.5-8.0); PROTEIN URINE 1+ (NEGATIVE); SPECIFIC GRAVITY URINE 1.031 (1.005-1.030)
[2020-07-17] MEDS ORDERED: ONDANSETRON HCL 4MG/2ML INJ IV STA (02:31)
[2020-07-17] MEDS ORDERED: MORPHINE SULFATE 4 MG/ML CPJ (NOT FOR IM USE) IV STA (02:31)
[2020-07-17] MEDS ORDERED: ACETAMINOPHEN 325MG TABLET PO PRN (07:45)
[2020-07-17] MEDS ORDERED: ONDANSETRON HCL 4MG/2ML INJ IV PRN (07:45)
[2020-07-17] MEDS ORDERED: PNEUMOCOCCAL 23-VAL P-SAC VAC 0.5 ML IM ONE (08:30)
[2020-07-17] MEDS: PANTOPRAZOLE SODIUM 40 MG/VIAL IV SCH ×2 (08:59→18:14)
[2020-07-17] MEDS: DEXT 5%/0.45% NACL 1000ML 1,000 ML IV SCH ×2 (09:01→22:03)
[2020-07-17 10:02] LABS: HEMATOCRIT 21.9 % (42.0-52.0); HEMOGLOBIN 7.2 g/dL (14.0-18.0)
[2020-07-17] MEDS: METOCLOPRAMIDE HCL 10MG/2ML VIAL IV SCH ×2 (18:14→23:48)
[2020-07-18] VITALS (23 sets, daily range): BP systolic 91–134; BP diastolic 45–95
[2020-07-18] MEDS: METOCLOPRAMIDE HCL 10MG/2ML VIAL IV SCH ×4 (05:37→23:56)
[2020-07-18] MEDS ORDERED: SORBITOL 70% SOLN 30ML PO PRN (07:00)
[2020-07-18 07:06] LABS: CHLORIDE 112 mEq/L (98-107)
[2020-07-18 07:16] LABS: TOTAL IRON BINDING CAPACITY 319 ug/dL (250-450)
[2020-07-18 07:25] LABS: FOLIC ACID (FOLATE) SERUM 12.4 ng/mL (>5.38)
[2020-07-18 07:39] LABS: BASOPHILS % 0.6 % (0.0-2.0); EOSINOPHILS % 1.9 % (0.0-5.0); MEAN CORPUSCULAR HEMOGLOBIN 27.3 pg (28.0-32.0); MEAN CORPUSCULAR VOLUME 85.8 fL (80.0-94.0); MEAN PLATELET VOLUME 8.8 fl (7.4-10.4); MONOCYTES % 8.1 % (2.0-8.0); NEUTROPHILS % 75.4 % (40.0-76.0); PLATELET 228 x1000/uL (130-400); RED BLOOD CELL COUNT 2.32 mill/uL (4.7-6.1); RED CELL DISTRIBUTION WIDTH 19.3 % (11.6-14.6)
[2020-07-18 07:46] LABS: HEMATOCRIT. 19.9 % (42.0-52.0); HEMOGLOBIN. 6.3 g/dL (14.0-18.0)
[2020-07-18] MEDS ORDERED: LIDOCAINE HCL 1% 20ML VIAL (Pyxis) INJ ONE (08:30)
[2020-07-18] MEDS: PANTOPRAZOLE SODIUM 40 MG/VIAL IV SCH ×2 (08:41→17:45)
[2020-07-18] MEDS: BISACODYL 5MG TABLET PO SCH (08:41)
[2020-07-18] MEDS ORDERED: IOHEXOL-300 50 ML BOTTLE IV ONE (09:28)
[2020-07-18] MEDS: DEXT 5%/0.45% NACL 1000ML 1,000 ML IV SCH ×2 (10:50→18:52)
[2020-07-18] MEDS: CYANOCOBALAMIN 1000MCG/ML VIAL IM SCH (14:29)
[2020-07-19] VITALS (9 sets, daily range): BP systolic 102–142; BP diastolic 51–88
[2020-07-19] MEDS: METOCLOPRAMIDE HCL 10MG/2ML VIAL IV SCH ×2 (06:27→12:45)
[2020-07-19 06:42] LABS: BASOPHILS % 0.4 % (0.0-2.0); EOSINOPHILS % 1.9 % (0.0-5.0); HEMATOCRIT. 26.3 % (42.0-52.0); LYMPHOCYTES % 11.6 % (20.0-50.0); MEAN CORPUSCULAR HEMOGLOBIN 28.9 pg (28.0-32.0); MEAN CORPUSCULAR VOLUME 85.9 fL (80.0-94.0); MEAN PLATELET VOLUME 8.9 fl (7.4-10.4); MONOCYTES % 11.6 % (2.0-8.0); NEUTROPHILS % 74.5 % (40.0-76.0); PLATELET 195 x1000/uL (130-400); RED BLOOD CELL COUNT 3.06 mill/uL (4.7-6.1); RED CELL DISTRIBUTION WIDTH 17.5 % (11.6-14.6)
[2020-07-19 06:53] LABS: CHLORIDE 108 mEq/L (98-107)
[2020-07-19] MEDS: SUCRALFATE 1 G/10 ML UDC PO SCH ×2 (07:30→12:46)
[2020-07-19] MEDS ORDERED: LORAZEPAM 2MG/ML CPJ IV PRN (08:00)
[2020-07-19] MEDS: PANTOPRAZOLE SODIUM 40 MG/VIAL IV SCH (08:44)
[2020-07-19] MEDS: BISACODYL 5MG TABLET PO SCH (08:44)
[2020-07-19] MEDS: CYANOCOBALAMIN 1000MCG/ML VIAL IM SCH (08:46)
[2020-07-19] MEDS ORDERED: IRON SUCROSE COMPLEX 100 MG/5 ML ML IV SCH (09:00)
[2020-07-19 10:10] LABS: HEMOGLOBIN. 8.9 g/dL (14.0-18.0)
[2020-07-31] MEDS ORDERED: CYANOCOBALAMIN 1000MCG/ML VIAL IM SCH (09:00)
== END 2020-07-19 16:30 | DRG 241 ==
LOC: ER 22:35 → 5EST 07-17 02:18 → EDBEDREQTM 07-17 02:34 → EDBEDREQSVC 07-17 02:34 → EDBEDREQ 07-17 02:34 → ENRESERV 07-17 03:47
PROVIDERS: ADMIT Internal Medicine; ATTEND Internal Medicine
PROC: 02HV33Z Insertion of Infusion Device into Superior Vena Cava, Percutaneous Approach (ICD-10-PCS; principal; 2020-07-18)
PROC: B518ZZA Fluoroscopy of Superior Vena Cava, Guidance (ICD-10-PCS; 2020-07-18)
PROC: B548ZZA Ultrasonography of Superior Vena Cava, Guidance (ICD-10-PCS; 2020-07-18)
PROC: 30233N1 Transfusion of Nonautologous Red Blood Cells into Peripheral Vein, Percutaneous Approach (ICD-10-PCS; 2020-07-18)
DX: K29.61 Other gastritis with bleeding (principal); G82.50 Quadriplegia, unspecified; R13.10 Dysphagia, unspecified; F20.9 Schizophrenia, unspecified; D62 Acute posthemorrhagic anemia; K80.51 Calculus of bile duct without cholangitis or cholecystitis with obstruction; D50.9 Iron deficiency anemia, unspecified; I10 Essential (primary) hypertension; Z20.822 Contact with and (suspected) exposure to COVID-19; G40.909 Epilepsy, unspecified, not intractable, without status epilepticus; F14.90 Cocaine use, unspecified, uncomplicated; J44.9 Chronic obstructive pulmonary disease, unspecified; K21.00 Gastro-esophageal reflux disease with esophagitis, without bleeding; Z79.1 Long term (current) use of non-steroidal anti-inflammatories (NSAID); Z79.899 Other long term (current) drug therapy; Z87.11 Personal history of peptic ulcer disease; Z86.718 Personal history of other venous thrombosis and embolism; Z95.828 Presence of other vascular implants and grafts; Z93.1 Gastrostomy status
CPT/HCPCS: 36415; 36573; 71045; 71275; 74176; 76705; 80048; 80053; 81003; 82140; 82270; 82607; 82728; 82746; 83540; 83550; 83605; 85014; 85018; 85025; 85044; 86850; 86870; 86900; 86920; 87426; 92523; 92610; 93005; 97166; 99291; C1725; C1769; C9113; J2060; J2270; J2405; J2765; J3420; J3490; J7030; J7042; P9016; Q9967

== ENCOUNTER 2021-06-20 23:51 | Inpatient (IN) | payer MEDICAID ==
[~2021-06-20] VITALS: Ht 165.1 cm; Wt 56.7 kg
[~2021-06-20 23:51] MED LIST changes: -ACET-2708 MT; -ALBU2.5V13 IH; -CALC-1139 MT; -DIPH25CA83 MT; -DOCU50LI25 MT; -MAGN400C MT; -MOM MT; -ONDA4TAB5 MT; -PROT40 MT; -RISP4 MT; -TOPUD MT
[2021-06-21] VITALS (8 sets, daily range): BP systolic 96–119; BP diastolic 54–73
[2021-06-21] MEDS ORDERED: SODIUM CHLORIDE 0.9% 1,000 ML IV ONE (00:15)
[2021-06-21 01:00] LABS: MEAN CORPUSCULAR HEMOGLOBIN 28.7 pg (28.0-32.0); MEAN PLATELET VOLUME 7.8 fl (7.4-10.4); PLATELET 353 x1000/uL (130-400); RED BLOOD CELL COUNT 2.28 mill/uL (4.7-6.1); RED CELL DISTRIBUTION WIDTH 18.7 % (11.6-14.6)
[2021-06-21 01:08] LABS: HEMATOCRIT. 19.6 % (42.0-52.0); HEMOGLOBIN. 6.6 g/dL (14.0-18.0)
[2021-06-21 01:09] LABS: ETHANOL BLOOD < 10 mg/dL
[2021-06-21 01:16] LABS: CHLORIDE 108 mEq/L (98-107)
[2021-06-21] MEDS ORDERED: VANCOMYCIN 1G PREMIX 200 ML IV SCH (01:45)
[2021-06-21] MEDS ORDERED: PIPERACILLIN/TAZOBACTAM 3.375GM/50ML PREMIX IV ONE (01:45)
[2021-06-21] MEDS ORDERED: VANCOMYCIN 1GM PMX (XELLIA) 200 ML IV NR (01:45)
[2021-06-21 01:50] LABS: PLATELET ESTIMATE NORMAL
[2021-06-21] MEDS ORDERED: PIPERACILLIN/TAZ 3.375G PREMIX 50 ML IV NR (02:00)
[2021-06-21 06:54] LABS: CLARITY URINE CLEAR (CLEAR); COLOR URINE DARK YELLOW (YELLOW); KETONES URINE NEGATIVE (NEGATIVE); LEUKOCYTE ESTERASE URINE TRACE (NEGATIVE); NITRITE URINE NEGATIVE (NEGATIVE); OCCULT BLOOD URINE NEGATIVE (NEGATIVE); PROTEIN URINE 1+ (NEGATIVE); SPECIFIC GRAVITY URINE 1.021 (1.005-1.030)
[2021-06-21 07:08] LABS: *AMPHETAMINES SCREEN URINE NEGATIVE (NEGATIVE); *BARBITURATES SCREEN URINE NEGATIVE (NEGATIVE); *BENZODIAZEPINES SCREEN URINE NEGATIVE (NEGATIVE)
[2021-06-21 09:52] LABS: *COCAINE SCREEN URINE NEGATIVE (NEGATIVE); CANNABINOID URINE SCREEN NEGATIVE (NEGATIVE); METHADONE URINE SCREEN NEGATIVE (NEGATIVE); OPIATES URINE SCREEN NEGATIVE (NEGATIVE); PHENCYCLIDINE URINE SCREEN NEGATIVE (NEGATIVE)
[2021-06-21] MEDS ORDERED: ONDANSETRON HCL 4MG/2ML INJ IV PRN (10:45)
[2021-06-21] MEDS: ACETAMINOPHEN 325MG TABLET PO PRN (12:24)
[2021-06-21 13:05] LABS: HEMATOCRIT 20.1 % (42.0-52.0); HEMOGLOBIN 6.6 g/dL (14.0-18.0)
[2021-06-21] MEDS: PANTOPRAZOLE SODIUM 40 MG/VIAL IV SCH ×2 (14:03→20:55)
[2021-06-21] MEDS: PIPERACILLIN/TAZOBACTAM 3.375 G in DEXTROSE 5% WATER 50 ML IV SCH ×2 (14:03→20:56)
[2021-06-21 17:08] LABS: TOTAL IRON BINDING CAPACITY 231 ug/dL (250-450)
[2021-06-21 17:50] LABS: FOLIC ACID (FOLATE) SERUM 13.1 ng/mL (>5.38)
[2021-06-21] MEDS: LEVETIRACETAM 500MG TABLET PO SCH (20:56)
[2021-06-21] MEDS: SENNOSIDES/DOCUSATE SOD 8.6/50MG TABLET PO SCH (21:05)
[2021-06-21 22:03] LABS: HEMATOCRIT 23.7 % (42.0-52.0); HEMOGLOBIN 7.9 g/dL (14.0-18.0)
[2021-06-22] VITALS: BP 99/49
[2021-06-22 02:56] LABS: HEMATOCRIT 22.8 % (42.0-52.0); HEMOGLOBIN 7.8 g/dL (14.0-18.0)
[2021-06-22] MEDS: PIPERACILLIN/TAZOBACTAM 3.375 G in DEXTROSE 5% WATER 50 ML IV SCH ×3 (04:49→21:30)
[2021-06-22 06:51] LABS: HEMOGLOBIN. 7.6 g/dL (14.0-18.0); MEAN CORPUSCULAR HEMOGLOBIN 28.7 pg (28.0-32.0); MEAN CORPUSCULAR VOLUME 86.8 fL (80.0-94.0); MEAN PLATELET VOLUME 8.3 fl (7.4-10.4); PLATELET 346 x1000/uL (130-400); RED BLOOD CELL COUNT 2.64 mill/uL (4.7-6.1); RED CELL DISTRIBUTION WIDTH 18.2 % (11.6-14.6)
[2021-06-22 07:03] LABS: HEMATOCRIT 22.7 % (42.0-52.0); HEMOGLOBIN 7.6 g/dL (14.0-18.0)
[2021-06-22 07:07] LABS: CHLORIDE 112 mEq/L (98-107)
[2021-06-22 07:24] LABS: AMYLASE 35 IU/L (25-115)
[2021-06-22 08:00] VITALS: BP 105/52
[2021-06-22] MEDS ORDERED: DIATR MEGLU/DIATRIZOATE SOLN 30ML PO SCH (09:00)
[2021-06-22] MEDS: DOCUSATE SODIUM SUGAR FREE 100MG/10ML UDC PO SCH (09:38)
[2021-06-22] MEDS: PANTOPRAZOLE SODIUM 40 MG/VIAL IV SCH ×2 (09:38→21:30)
[2021-06-22] MEDS: LEVETIRACETAM 500MG TABLET PO SCH ×2 (09:38→21:30)
[2021-06-22 12:00] VITALS: BP 96/56
[2021-06-22 13:04] LABS: PLATELET ESTIMATE NORMAL
[2021-06-22] MEDS: ACETAMINOPHEN 325MG TABLET PO PRN (15:40)
[2021-06-22 16:00] VITALS: BP 106/47
[2021-06-22 16:10] LABS: HEMATOCRIT 24.6 % (42.0-52.0); HEMOGLOBIN 8.1 g/dL (14.0-18.0)
[2021-06-22] MEDS ORDERED: IOHEXOL-300 100 ML BOTTLE ONE (19:07)
[2021-06-22 20:00] VITALS: BP 111/62
[2021-06-22 20:26] LABS: HEMATOCRIT 23.4 % (42.0-52.0); HEMOGLOBIN 7.8 g/dL (14.0-18.0)
[2021-06-22] MEDS ORDERED: NALOXONE HCL 0.4MG/ML VIAL IV PRN (21:00)
[2021-06-22] MEDS: HYDROCODONE/ACETAMINOPHEN 10/325MG TABLET PO PRN (21:30)
[2021-06-22] MEDS: SENNOSIDES/DOCUSATE SOD 8.6/50MG TABLET PO SCH (21:30)
[2021-06-22 23:05] LABS: HEMATOCRIT 23.6 % (42.0-52.0); HEMOGLOBIN 7.8 g/dL (14.0-18.0)
[2021-06-23] VITALS: BP 110/50
[2021-06-23 04:00] VITALS: BP 106/55
[2021-06-23] MEDS: PIPERACILLIN/TAZOBACTAM 3.375 G in DEXTROSE 5% WATER 50 ML IV SCH ×3 (06:28→21:13)
[2021-06-23 06:55] LABS: HEMATOCRIT 22.2 % (42.0-52.0); HEMOGLOBIN 7.4 g/dL (14.0-18.0)
[2021-06-23 08:00] VITALS: BP 100/63
[2021-06-23] MEDS: DOCUSATE SODIUM SUGAR FREE 100MG/10ML UDC PO SCH (08:58)
[2021-06-23] MEDS: LEVETIRACETAM 500MG TABLET PO SCH ×2 (08:58→21:13)
[2021-06-23] MEDS: PANTOPRAZOLE SODIUM 40 MG/VIAL IV SCH ×2 (08:58→21:13)
[2021-06-23 12:00] VITALS: BP 111/65
[2021-06-23] MEDS ORDERED: LACTULOSE 20G/30ML UDC PO NR (14:00)
[2021-06-23 16:00] VITALS: BP 124/69
[2021-06-23 16:44] LABS: HEMATOCRIT 24.9 % (42.0-52.0); HEMOGLOBIN 8.2 g/dL (14.0-18.0)
[2021-06-23 20:00] VITALS: BP 108/63
[2021-06-23] MEDS: SENNOSIDES/DOCUSATE SOD 8.6/50MG TABLET PO SCH (21:13)
[2021-06-23 23:47] LABS: HEMATOCRIT 22.1 % (42.0-52.0); HEMOGLOBIN 7.4 g/dL (14.0-18.0)
[2021-06-24] VITALS: BP 121/67
[2021-06-24 04:00] VITALS: BP 107/55
[2021-06-24] MEDS: PIPERACILLIN/TAZOBACTAM 3.375 G in DEXTROSE 5% WATER 50 ML IV SCH ×3 (05:38→21:57)
[2021-06-24 08:00] VITALS: BP_SYST 105
[2021-06-24] MEDS: PANTOPRAZOLE SODIUM 40 MG/VIAL IV SCH ×2 (08:25→21:36)
[2021-06-24] MEDS: LEVETIRACETAM 500MG TABLET PO SCH ×2 (08:25→21:57)
[2021-06-24] MEDS: DOCUSATE SODIUM SUGAR FREE 100MG/10ML UDC PO SCH (08:43)
[2021-06-24 12:00] VITALS: BP 100/54
[2021-06-24 16:00] VITALS: BP 108/64
[2021-06-24 17:08] LABS: BASOPHILS % 0.7 % (0.0-2.0); HEMATOCRIT. 23.8 % (42.0-52.0); HEMOGLOBIN. 7.9 g/dL (14.0-18.0); LYMPHOCYTES % 10.1 % (20.0-50.0); MEAN CORPUSCULAR HEMOGLOBIN 28.5 pg (28.0-32.0); MEAN CORPUSCULAR VOLUME 86.1 fL (80.0-94.0); MEAN PLATELET VOLUME 7.8 fl (7.4-10.4); MONOCYTES % 11.9 % (2.0-8.0); NEUTROPHILS % 76.3 % (40.0-76.0); PLATELET 458 x1000/uL (130-400); RED BLOOD CELL COUNT 2.77 mill/uL (4.7-6.1); RED CELL DISTRIBUTION WIDTH 18.9 % (11.6-14.6)
[2021-06-24 17:14] LABS: CHLORIDE 108 mEq/L (98-107)
[2021-06-24 20:00] VITALS: BP 98/60
[2021-06-24] MEDS: HYDROCODONE/ACETAMINOPHEN 10/325MG TABLET PO PRN ×2 (20:04→23:57)
[2021-06-24] MEDS: SENNOSIDES/DOCUSATE SOD 8.6/50MG TABLET PO SCH (21:36)
[2021-06-25] VITALS: BP 100/63
[2021-06-25 04:00] VITALS: BP 98/66
[2021-06-25] MEDS: HYDROCODONE/ACETAMINOPHEN 10/325MG TABLET PO PRN ×3 (06:01→21:57)
[2021-06-25] MEDS: PIPERACILLIN/TAZOBACTAM 3.375 G in DEXTROSE 5% WATER 50 ML IV SCH ×3 (06:01→21:56)
[2021-06-25 08:00] VITALS: BP 143/89
[2021-06-25] MEDS: LEVETIRACETAM 500MG TABLET PO SCH ×2 (09:15→21:57)
[2021-06-25] MEDS: DOCUSATE SODIUM SUGAR FREE 100MG/10ML UDC PO SCH (09:15)
[2021-06-25] MEDS: PANTOPRAZOLE SODIUM 40 MG/VIAL IV SCH ×2 (09:15→21:56)
[2021-06-25 12:00] VITALS: BP_SYST 106; BP_SYST 120; BP_DIAS 60; BP_DIAS 71
[2021-06-25] MEDS: ACETAMINOPHEN 325MG TABLET PO PRN (18:50)
[2021-06-25 20:00] VITALS: BP 109/60
[2021-06-25] MEDS: SENNOSIDES/DOCUSATE SOD 8.6/50MG TABLET PO SCH (21:56)
[2021-06-26] VITALS: BP 100/60
[2021-06-26 04:00] VITALS: BP 107/62
[2021-06-26] MEDS: PIPERACILLIN/TAZOBACTAM 3.375 G in DEXTROSE 5% WATER 50 ML IV SCH (05:02)
[2021-06-26 07:59] LABS: BASOPHILS % 0.9 % (0.0-2.0); HEMATOCRIT. 25.6 % (42.0-52.0); HEMOGLOBIN. 8.5 g/dL (14.0-18.0); LYMPHOCYTES % 9.8 % (20.0-50.0); MEAN CORPUSCULAR HEMOGLOBIN 29.4 pg (28.0-32.0); MEAN CORPUSCULAR VOLUME 88.1 fL (80.0-94.0); MEAN PLATELET VOLUME 8.5 fl (7.4-10.4); MONOCYTES % 10.1 % (2.0-8.0); NEUTROPHILS % 77.2 % (40.0-76.0); PLATELET 395 x1000/uL (130-400); RED BLOOD CELL COUNT 2.91 mill/uL (4.7-6.1); RED CELL DISTRIBUTION WIDTH 19.6 % (11.6-14.6)
[2021-06-26 08:00] VITALS: BP 108/58
[2021-06-26 08:06] LABS: CHLORIDE 110 mEq/L (98-107)
[2021-06-26] MEDS: PANTOPRAZOLE SODIUM 40 MG/VIAL IV SCH (08:44)
[2021-06-26] MEDS: LEVETIRACETAM 500MG TABLET PO SCH (08:45)
[2021-06-26] MEDS: DOCUSATE SODIUM SUGAR FREE 100MG/10ML UDC PO SCH (08:45)
[2021-06-26 10:43] VITALS: BP 108/58
[2021-06-26 12:00] VITALS: BP 137/90
== END 2021-06-26 14:46 | DRG 720 ==
LOC: ER 23:51 → MICUSO 06-21 01:44 → 7WST 06-21 08:40
PROVIDERS: ADMIT Internal Medicine; ATTEND Internal Medicine
PROC: 30233N1 Transfusion of Nonautologous Red Blood Cells into Peripheral Vein, Percutaneous Approach (ICD-10-PCS; principal; 2021-06-21)
DX: A41.9 Sepsis, unspecified organism (principal); E43 Unspecified severe protein-calorie malnutrition; E87.8 Other disorders of electrolyte and fluid balance, not elsewhere classified; K80.50 Calculus of bile duct without cholangitis or cholecystitis without obstruction; D64.9 Anemia, unspecified; E11.9 Type 2 diabetes mellitus without complications; E78.5 Hyperlipidemia, unspecified; F03.90 Unspecified dementia, unspecified severity, without behavioral disturbance, psychotic disturbance, mood disturbance, and anxiety; F17.200 Nicotine dependence, unspecified, uncomplicated; F20.9 Schizophrenia, unspecified; G40.909 Epilepsy, unspecified, not intractable, without status epilepticus; I10 Essential (primary) hypertension; J44.9 Chronic obstructive pulmonary disease, unspecified; K21.00 Gastro-esophageal reflux disease with esophagitis, without bleeding; R74.01 Elevation of levels of liver transaminase levels; Z79.899 Other long term (current) drug therapy; Z68.20 Body mass index [BMI] 20.0-20.9, adult; Z95.820 Peripheral vascular angioplasty status with implants and grafts; F14.11 Cocaine abuse, in remission
CPT/HCPCS: 36415; 71045; 74177; 80048; 80053; 80076; 80305; 80320; 81003; 82140; 82150; 82248; 82607; 82728; 82746; 83540; 83550; 83605; 84145; 84443; 84484; 85014; 85018; 85025; 85044; 86850; 86870; 86900; 86920; 93005; 99285; C9113; J2543; J3370; J7030; J7060; P9016; Q9963; Q9967; G0480

== ENCOUNTER 2023-11-12 09:40 | Inpatient (IN) | payer MEDICAID ==
[~2023-11-12] VITALS: Ht 175.3 cm; Wt 60.6 kg
[~2023-11-12 09:40] MED LIST changes: +AMIT25TA9 PO; +METO-293 MT; -MIDO5TAB4 MT; +PROT40 PO; +RISP-28 MT; -RISP1TAB97 MT; +SENN-362 PO; +SUCR1TAB30 PO
[2023-11-12] MEDS: PANTOPRAZOLE SODIUM 40 MG/VIAL IV ONE (10:30)
[2023-11-12] MEDS: METOCLOPRAMIDE HCL 10MG/2ML VIAL IV ONE (10:30)
[2023-11-12] MEDS ORDERED: PANTOPRAZOLE 80 MG in SODIUM CHLORIDE 0.9% 100 ML IV SCH (10:30)
[2023-11-12] MEDS: SODIUM CHLORIDE 0.9% 500 ML IV ONE (10:30)
[2023-11-12 11:58] LABS: BASOPHILS % 0.5 % (0.0-2.0); HEMATOCRIT. 28.8 % (42.0-52.0); HEMOGLOBIN. 9.6 g/dL (14.0-18.0); MEAN CORPUSCULAR HEMOGLOBIN 29.3 pg (28.0-32.0); MEAN CORPUSCULAR HGB CONC 33.3 g/dL (31.0-37.0); MEAN PLATELET VOLUME 7.7 fl (7.4-10.4); MONOCYTES % 10.1 % (2.0-8.0); NEUTROPHILS % 77.4 % (40.0-76.0); PLATELET 404 x1000/uL (130-400); RED BLOOD CELL COUNT 3.28 mill/uL (4.7-6.1); RED CELL DISTRIBUTION WIDTH 17.1 % (11.6-14.6); WHITE BLOOD COUNT 10.5 x1000/uL (4.5-11.0)
[2023-11-12 12:12] LABS: CARBON DIOXIDE 22 mEq/L (21-32)
[2023-11-12 12:13] LABS: CALCIUM 7.8 mg/dL (8.7-10.4)
[2023-11-12 12:17] LABS: CREATININE 1.3 mg/dL (0.6-1.3)
[2023-11-12 12:18] LABS: GLUCOSE 119 mg/dL (70-105); UREA NITROGEN BLOOD 54 mg/dL (9-23)
[2023-11-12 12:19] LABS: ALANINE AMINOTRANSFERASE < 7 IU/L (10-49); ALBUMIN 2.7 g/dL (3.2-4.8); ASPARTATE AMINOTRANSFERASE 16 IU/L (<34)
[2023-11-12 12:20] LABS: BILIRUBIN DIRECT 0.1 mg/dL (<=3.0); BILIRUBIN TOTAL 0.3 mg/dL (0.1-1.0); PROTEIN TOTAL 5.9 g/dL (6.0-8.3)
[2023-11-12] MEDS ORDERED: DEXTROSE 50% WATER 50ML SYRINGE IV PRN (12:30)
[2023-11-12] MEDS ORDERED: IPRATROPIUM/ALBUTEROL 0.5-3(2.5)MG/3ML NEB HHN PRN (12:30)
[2023-11-12] MEDS ORDERED: ACETAMINOPHEN 325MG TABLET PO PRN (12:30)
[2023-11-12] MEDS ORDERED: CLONIDINE 0.1MG TABLET PO PRN (12:30)
[2023-11-12] MEDS ORDERED: DOCUSATE SODIUM 100MG CAPSULE PO PRN (12:30)
[2023-11-12 12:38] LABS: CHLORIDE 107 mEq/L (98-107); POTASSIUM 4.6 mEq/L (3.5-5.1); SODIUM 138 mEq/L (136-145)
[2023-11-12] MEDS: BLOOD SUGAR DIAGNOSTIC STRIP TEST SCH (13:00)
[2023-11-12] MEDS ORDERED: PHENYLEPHRINE 50MG/250ML PMX 250 ML IV PRN (13:00)
[2023-11-12] MEDS: INSULIN LISPRO 100 UNITS/ML SUBCUT SCH (13:20)
[2023-11-12] MEDS: DEXT 5%/0.45% NACL 1000ML 1,000 ML IV SCH (13:30)
[2023-11-12] MEDS: PANTOPRAZOLE 80 MG in SODIUM CHLORIDE 0.9% 100 ML IV SCH (13:30)
[2023-11-12] MEDS: SODIUM CHLORIDE 0.9% 500 ML IV NR (13:52)
[2023-11-12] MEDS: LEVETIRACETAM 500MG PREMIX 100 ML IV SCH (13:53)
[2023-11-12 17:10] LABS: CREATINE KINASE MB FRACTION < 0.5 ng/mL (0.5-3.6)
[2023-11-12 17:11] LABS: CREATINE KINASE 23 IU/L (46-171); LACTIC ACID 2.6 mmol/L (0.4-2.0)
[2023-11-12 17:13] LABS: TROPONIN I HIGH SENSITIVITY < 4 ng/L (3.0-53)
[2023-11-12] MEDS: METOCLOPRAMIDE HCL 10MG/2ML VIAL IV SCH (19:06)
[2023-11-12] MEDS: SUCRALFATE 1G TABLET PO SCH (21:00)
[2023-11-12] MEDS: BISACODYL 10MG SUPP PR SCH (23:55)
[2023-11-13] VITALS (12 sets, daily range): BP systolic 80–134; BP diastolic 37–120; PULSE 82–100; RESP 13–23; TEMP 36.28068–37.252; O2SAT 98–100
[2023-11-13] MEDS: SODIUM CHLORIDE 0.9% 500 ML IV NR (00:20)
[2023-11-13 03:21] LABS: CREATINE KINASE MB FRACTION < 0.5 ng/mL (0.5-3.6)
[2023-11-13 03:22] LABS: CREATINE KINASE 22 IU/L (46-171)
[2023-11-13 03:24] LABS: TROPONIN I HIGH SENSITIVITY < 4 ng/L (3.0-53)
[2023-11-13 07:41] LABS: PROTHROMBIN TIME 11.2 sec (9.6-11.0)
[2023-11-13 07:47] LABS: CHLORIDE 113 mEq/L (98-107); POTASSIUM 4.3 mEq/L (3.5-5.1); SODIUM 143 mEq/L (136-145)
[2023-11-13 07:49] LABS: CALCIUM 7.6 mg/dL (8.7-10.4); CARBON DIOXIDE 26 mEq/L (21-32)
[2023-11-13 07:54] LABS: CREATININE 0.8 mg/dL (0.6-1.3); GLUCOSE 86 mg/dL (70-105); UREA NITROGEN BLOOD 26 mg/dL (9-23)
[2023-11-13 07:55] LABS: ALANINE AMINOTRANSFERASE < 7 IU/L (10-49); ASPARTATE AMINOTRANSFERASE 14 IU/L (<34)
[2023-11-13 07:56] LABS: ALBUMIN 2.6 g/dL (3.2-4.8); BASOPHILS % 0.7 % (0.0-2.0); BILIRUBIN DIRECT 0.2 mg/dL (<=3.0); EOSINOPHILS % 1.8 % (0.0-5.0); HEMATOCRIT. 26.6 % (42.0-52.0); HEMOGLOBIN. 8.5 g/dL (14.0-18.0); LYMPHOCYTES % 18.8 % (20.0-50.0); MEAN CORPUSCULAR HEMOGLOBIN 28.9 pg (28.0-32.0); MEAN CORPUSCULAR HGB CONC 32.1 g/dL (31.0-37.0); MEAN CORPUSCULAR VOLUME 90.1 fL (80.0-94.0); MEAN PLATELET VOLUME 8.4 fl (7.4-10.4); MONOCYTES % 11.1 % (2.0-8.0); NEUTROPHILS % 67.6 % (40.0-76.0); PHOSPHORUS 3.2 mg/dL (2.5-4.9); PLATELET 304 x1000/uL (130-400); RED BLOOD CELL COUNT 2.95 mill/uL (4.7-6.1); RED CELL DISTRIBUTION WIDTH 17.5 % (11.6-14.6); WHITE BLOOD COUNT 6.9 x1000/uL (4.5-11.0)
[2023-11-13 07:57] LABS: BILIRUBIN TOTAL 0.4 mg/dL (0.1-1.0); PROTEIN TOTAL 5.5 g/dL (6.0-8.3)
[2023-11-13 08:04] LABS: CLARITY URINE CLEAR (CLEAR); COLOR URINE YELLOW (YELLOW); GLUCOSE URINE NEGATIVE (NEGATIVE); KETONES URINE NEGATIVE (NEGATIVE); LEUKOCYTE ESTERASE URINE NEGATIVE (NEGATIVE); NITRITE URINE NEGATIVE (NEGATIVE); OCCULT BLOOD URINE NEGATIVE (NEGATIVE); PH URINE 6.5 (4.5-8.0); PROTEIN URINE NEGATIVE (NEGATIVE); SPECIFIC GRAVITY URINE 1.024 (1.005-1.030); UROBILINOGEN URINE 0.2 E.U./dL (0.2-1.0)
[2023-11-13 08:15] LABS: *AMPHETAMINES SCREEN URINE NEGATIVE (NEGATIVE); *BARBITURATES SCREEN URINE NEGATIVE (NEGATIVE); *BENZODIAZEPINES SCREEN URINE NEGATIVE (NEGATIVE); *COCAINE SCREEN URINE NEGATIVE (NEGATIVE); METHADONE URINE SCREEN NEGATIVE (NEGATIVE); OPIATES URINE SCREEN NEGATIVE (NEGATIVE); PHENCYCLIDINE URINE SCREEN NEGATIVE (NEGATIVE)
[2023-11-13 08:16] LABS: CANNABINOID URINE SCREEN NEGATIVE (NEGATIVE); ECSTASY MDMA SCREEN URINE NEGATIVE (NEGATIVE)
[2023-11-13] MEDS: PANTOPRAZOLE SODIUM 40 MG/VIAL IV SCH (11:16)
[2023-11-13] MEDS: LACTULOSE 20G/30ML UDC PO NR (13:01)
[2023-11-13] MEDS: LEVETIRACETAM 500MG PREMIX 100 ML IV SCH (13:02)
[2023-11-13] MEDS: ACETAMINOPHEN 325MG TABLET PO PRN (13:07)
[2023-11-13] MEDS: PIPERACILLIN/TAZO 3.375G/50ML 50 ML IV SCH (15:55)
[2023-11-13] MEDS: BISACODYL 5MG TABLET PO SCH (15:56)
[2023-11-13] MEDS: NA PHOS,M-B/NA PHOS,DI-BA ENEMA 118ML PR ONE (15:56)
[2023-11-13] MEDS: DOCUSATE SODIUM 100MG CAPSULE PO SCH (20:44)
[2023-11-13] MEDS: SENNOSIDES/DOCUSATE SOD 8.6/50MG TABLET PO SCH (20:44)
[2023-11-13] MEDS: HYDROCODONE/ACETAMINOPHEN 5/325MG TABLET PO PRN (22:39)
[2023-11-13] MEDS ORDERED: NALOXONE HCL 0.4MG/ML VIAL IV PRN (22:45)
[2023-11-13] MEDS: MIDODRINE HCL 5MG TABLET PO SCH (23:30)
[2023-11-14] VITALS (12 sets, daily range): BP systolic 91–149; BP diastolic 53–110; PULSE 85–107; RESP 15–25; TEMP 36.22512–37.00296; O2SAT 97–100
[2023-11-14 07:07] LABS: ALBUMIN 2.7 g/dL (3.2-4.8); PREALBUMIN 10.7 mg/dl (10.0-40.0)
[2023-11-14 08:49] LABS: CHLORIDE 109 mEq/L (98-107); POTASSIUM 3.7 mEq/L (3.5-5.1); SODIUM 139 mEq/L (136-145)
[2023-11-14 08:50] LABS: CALCIUM 7.8 mg/dL (8.7-10.4); CARBON DIOXIDE 22 mEq/L (21-32)
[2023-11-14 08:53] LABS: BASOPHILS % 0.2 % (0.0-2.0); EOSINOPHILS % 4.2 % (0.0-5.0); HEMATOCRIT. 23.6 % (42.0-52.0); HEMOGLOBIN. 7.8 g/dL (14.0-18.0); LYMPHOCYTES % 15.6 % (20.0-50.0); MEAN CORPUSCULAR HEMOGLOBIN 29.1 pg (28.0-32.0); MEAN CORPUSCULAR HGB CONC 32.9 g/dL (31.0-37.0); MEAN CORPUSCULAR VOLUME 88.5 fL (80.0-94.0); MEAN PLATELET VOLUME 8.7 fl (7.4-10.4); MONOCYTES % 12.5 % (2.0-8.0); NEUTROPHILS % 67.5 % (40.0-76.0); PLATELET 249 x1000/uL (130-400); RED BLOOD CELL COUNT 2.67 mill/uL (4.7-6.1); RED CELL DISTRIBUTION WIDTH 17.1 % (11.6-14.6); WHITE BLOOD COUNT 5.5 x1000/uL (4.5-11.0)
[2023-11-14 08:55] LABS: CREATININE 0.8 mg/dL (0.6-1.3); GLUCOSE 95 mg/dL (70-105); UREA NITROGEN BLOOD 18 mg/dL (9-23)
[2023-11-14 08:57] LABS: ALANINE AMINOTRANSFERASE < 7 IU/L (10-49); ALBUMIN 2.8 g/dL (3.2-4.8); ASPARTATE AMINOTRANSFERASE 23 IU/L (<34); BILIRUBIN TOTAL 0.2 mg/dL (0.1-1.0); PROTEIN TOTAL 5.7 g/dL (6.0-8.3)
[2023-11-14 08:59] LABS: BILIRUBIN DIRECT < 0.1 mg/dL (<=3.0)
[2023-11-14] MEDS: ONDANSETRON HCL 4MG/2ML INJ IV PRN (12:01)
[2023-11-14 16:20] LABS: PROTHROMBIN TIME 10.7 sec (9.6-11.0)
[2023-11-15] VITALS (12 sets, daily range): BP systolic 99–127; BP diastolic 52–108; PULSE 76–96; RESP 12–24; TEMP 36.3918–36.55848; O2SAT 97–100
[2023-11-15 07:03] LABS: CARBON DIOXIDE 27 mEq/L (21-32); CHLORIDE 110 mEq/L (98-107); POTASSIUM 4.2 mEq/L (3.5-5.1); SODIUM 141 mEq/L (136-145)
[2023-11-15 07:04] LABS: CALCIUM 8.1 mg/dL (8.7-10.4)
[2023-11-15 07:08] LABS: CREATININE 0.7 mg/dL (0.6-1.3)
[2023-11-15 07:09] LABS: GLUCOSE 84 mg/dL (70-105); UREA NITROGEN BLOOD 9 mg/dL (9-23)
[2023-11-15 07:11] LABS: PHOSPHORUS 3.3 mg/dL (2.5-4.9)
[2023-11-15 07:17] LABS: BASOPHILS % 0.7 % (0.0-2.0); EOSINOPHILS % 6.2 % (0.0-5.0); HEMATOCRIT. 24.1 % (42.0-52.0); HEMOGLOBIN. 7.7 g/dL (14.0-18.0); LYMPHOCYTES % 11.7 % (20.0-50.0); MEAN CORPUSCULAR HEMOGLOBIN 29.2 pg (28.0-32.0); MEAN CORPUSCULAR HGB CONC 31.9 g/dL (31.0-37.0); MEAN CORPUSCULAR VOLUME 91.5 fL (80.0-94.0); MONOCYTES % 12.8 % (2.0-8.0); NEUTROPHILS % 68.6 % (40.0-76.0); PLATELET 282 x1000/uL (130-400); RED BLOOD CELL COUNT 2.63 mill/uL (4.7-6.1); RED CELL DISTRIBUTION WIDTH 17.4 % (11.6-14.6); WHITE BLOOD COUNT 5.6 x1000/uL (4.5-11.0)
[2023-11-15] MEDS ORDERED: LIDOCAINE HCL 1% 10 MG/ML 10ML VIAL ONE (07:41)
[2023-11-16] VITALS (12 sets, daily range): BP systolic 89–126; BP diastolic 52–80; PULSE 77–100; RESP 12–24; TEMP 36.3918–36.6696; O2SAT 98–100
[2023-11-16 05:44] LABS: CARBON DIOXIDE 26 mEq/L (21-32)
[2023-11-16 05:46] LABS: INR 0.9; PROTHROMBIN TIME 10.5 sec (9.6-11.0)
[2023-11-16 05:49] LABS: CREATININE 0.7 mg/dL (0.6-1.3); GLUCOSE 83 mg/dL (70-105); UREA NITROGEN BLOOD 10 mg/dL (9-23)
[2023-11-16 05:51] LABS: ALANINE AMINOTRANSFERASE < 7 IU/L (10-49); ALBUMIN 2.8 g/dL (3.2-4.8); ASPARTATE AMINOTRANSFERASE 21 IU/L (<34)
[2023-11-16 06:16] LABS: CHLORIDE 108 mEq/L (98-107); POTASSIUM 3.8 mEq/L (3.5-5.1); SODIUM 140 mEq/L (136-145)
[2023-11-16 06:23] LABS: BASOPHILS % 0.8 % (0.0-2.0); EOSINOPHILS % 6.8 % (0.0-5.0); HEMATOCRIT. 24.1 % (42.0-52.0); HEMOGLOBIN. 7.5 g/dL (14.0-18.0); LYMPHOCYTES % 16.8 % (20.0-50.0); MEAN CORPUSCULAR HEMOGLOBIN 28.5 pg (28.0-32.0); MEAN PLATELET VOLUME 8.3 fl (7.4-10.4); MONOCYTES % 11.8 % (2.0-8.0); NEUTROPHILS % 63.8 % (40.0-76.0); PLATELET 233 x1000/uL (130-400); RED BLOOD CELL COUNT 2.62 mill/uL (4.7-6.1); RED CELL DISTRIBUTION WIDTH 18.5 % (11.6-14.6); WHITE BLOOD COUNT 4.8 x1000/uL (4.5-11.0)
[2023-11-16 06:24] LABS: BILIRUBIN TOTAL 0.2 mg/dL (0.1-1.0); PHOSPHORUS 2.9 mg/dL (2.5-4.9); PROTEIN TOTAL 5.8 g/dL (6.0-8.3)
[2023-11-16 06:25] LABS: BILIRUBIN DIRECT < 0.1 mg/dL (<=3.0)
[2023-11-17] VITALS (8 sets, daily range): BP systolic 88–121; BP diastolic 56–69; PULSE 78–93; RESP 14–22; TEMP 36.33624–37.05852; O2SAT 97–100
[2023-11-17 05:50] LABS: CALCIUM 8.3 mg/dL (8.7-10.4); CARBON DIOXIDE 26 mEq/L (21-32); CHLORIDE 109 mEq/L (98-107); POTASSIUM 4.3 mEq/L (3.5-5.1); SODIUM 141 mEq/L (136-145)
[2023-11-17 05:56] LABS: CREATININE 0.7 mg/dL (0.6-1.3); GLUCOSE 85 mg/dL (70-105); UREA NITROGEN BLOOD 9 mg/dL (9-23)
[2023-11-17 05:59] LABS: BASOPHILS % 0.8 % (0.0-2.0); EOSINOPHILS % 6.3 % (0.0-5.0); HEMATOCRIT. 24.6 % (42.0-52.0); HEMOGLOBIN. 7.8 g/dL (14.0-18.0); LYMPHOCYTES % 13.3 % (20.0-50.0); MEAN CORPUSCULAR HEMOGLOBIN 29.2 pg (28.0-32.0); MEAN CORPUSCULAR HGB CONC 31.8 g/dL (31.0-37.0); MEAN PLATELET VOLUME 8.4 fl (7.4-10.4); NEUTROPHILS % 66.6 % (40.0-76.0); PLATELET 213 x1000/uL (130-400); RED BLOOD CELL COUNT 2.67 mill/uL (4.7-6.1); RED CELL DISTRIBUTION WIDTH 18.5 % (11.6-14.6); WHITE BLOOD COUNT 5.4 x1000/uL (4.5-11.0)
[2023-11-18] VITALS: BP 133/80; PULSE 92; RESP 22; TEMP 37.33632; O2SAT 100
[2023-11-18 04:44] VITALS: BP 116/81; PULSE 92; RESP 13; TEMP 36.72516; O2SAT 99
[2023-11-18 05:57] LABS: CARBON DIOXIDE 25 mEq/L (21-32); CHLORIDE 108 mEq/L (98-107); POTASSIUM 4.2 mEq/L (3.5-5.1); SODIUM 141 mEq/L (136-145)
[2023-11-18 05:58] LABS: CALCIUM 8.5 mg/dL (8.7-10.4)
[2023-11-18 06:03] LABS: CREATININE 0.7 mg/dL (0.6-1.3); GLUCOSE 86 mg/dL (70-105); UREA NITROGEN BLOOD 9 mg/dL (9-23)
[2023-11-18 06:19] LABS: HEMATOCRIT. 27.3 % (42.0-52.0); HEMOGLOBIN. 8.7 g/dL (14.0-18.0); MEAN CORPUSCULAR HEMOGLOBIN 29.4 pg (28.0-32.0); MEAN CORPUSCULAR HGB CONC 31.9 g/dL (31.0-37.0); MEAN CORPUSCULAR VOLUME 92.3 fL (80.0-94.0); MEAN PLATELET VOLUME 8.3 fl (7.4-10.4); PLATELET 225 x1000/uL (130-400); RED BLOOD CELL COUNT 2.96 mill/uL (4.7-6.1); RED CELL DISTRIBUTION WIDTH 18.7 % (11.6-14.6); WHITE BLOOD COUNT 8.2 x1000/uL (4.5-11.0)
[2023-11-18 07:01] LABS: DIFFERENTIAL COMMENT 1
[2023-11-18 08:00] VITALS: BP 111/69; PULSE 88; RESP 14; TEMP 37.39188; O2SAT 100
[2023-11-18 12:00] VITALS: BP 125/67; PULSE 89; RESP 23; TEMP 36.78072; O2SAT 98
[2023-11-18 14:00] VITALS: BP 95/67; PULSE 98; RESP 17; O2SAT 97
[2023-11-18 14:29] VITALS: BP 109/67; PULSE 89; TEMP 98.2; O2SAT 99
[2023-11-18 22:32] LABS: ANISOCYTOSIS 1+; PLATELET ESTIMATE NORMAL
== END 2023-11-18 15:30 | DRG 242 ==
LOC: ER 09:49 → 5EST 11:24 → EDBEDREQTM 11:26 → EDBEDREQSVC 11:26 → EDBEDREQ 11:26 → EDBEDREQSVC 18:12
PROVIDERS: ADMIT Internal Medicine; ATTEND Internal Medicine
PROC: 30233N1 Transfusion of Nonautologous Red Blood Cells into Peripheral Vein, Percutaneous Approach (ICD-10-PCS; 2023-11-12)
PROC: 0JB70ZZ Excision of Back Subcutaneous Tissue and Fascia, Open Approach (ICD-10-PCS; 2023-11-14)
PROC: 02H633Z Insertion of Infusion Device into Right Atrium, Percutaneous Approach (ICD-10-PCS; principal; 2023-11-15)
PROC: B548ZZA Ultrasonography of Superior Vena Cava, Guidance (ICD-10-PCS; 2023-11-15)
DX: K22.11 Ulcer of esophagus with bleeding (principal); J96.01 Acute respiratory failure with hypoxia; G93.40 Encephalopathy, unspecified; L89.153 Pressure ulcer of sacral region, stage 3; I95.9 Hypotension, unspecified; F03.90 Unspecified dementia, unspecified severity, without behavioral disturbance, psychotic disturbance, mood disturbance, and anxiety; D62 Acute posthemorrhagic anemia; K44.9 Diaphragmatic hernia without obstruction or gangrene; K59.00 Constipation, unspecified; K21.9 Gastro-esophageal reflux disease without esophagitis; J44.9 Chronic obstructive pulmonary disease, unspecified; I10 Essential (primary) hypertension; G40.909 Epilepsy, unspecified, not intractable, without status epilepticus; F20.9 Schizophrenia, unspecified; E11.9 Type 2 diabetes mellitus without complications; R00.0 Tachycardia, unspecified; B19.20 Unspecified viral hepatitis C without hepatic coma; Z87.11 Personal history of peptic ulcer disease; Z90.49 Acquired absence of other specified parts of digestive tract; Z95.828 Presence of other vascular implants and grafts; Z87.19 Personal history of other diseases of the digestive system; Z86.718 Personal history of other venous thrombosis and embolism; Z79.899 Other long term (current) drug therapy
CPT/HCPCS: 36415; 36573; 71045; 74176; 80048; 80076; 80305; 81003; 82040; 82270; 82550; 82553; 82962; 83605; 83735; 83880; 84100; 84134; 84145; 84484; 85025; 85044; 85379; 86850; 86870; 86900; 86920; 87426; 92610; 99291; C1725; C1893; J1815; J1953; J2405; J2470; J2543; J2765; J3490; J7040; J7050; P9016